=== PATIENT | female | born 1950 | race African-American/Black ===

== ENCOUNTER 2023-10-16 18:52 | Emergency (ER) | payer OTHER ==
[2023-10-16 20:00] LABS: Absolute Basophils 0.1 K/uL (0-0.5); Absolute Eosinophils 0.1 K/uL (0-0.5); Absolute Lymphocytes (CBC) 2.4 K/uL (0.7-4.9); Absolute Monocytes 0.5 K/uL (0.1-1.3); Absolute Neutrophil 6.8 K/uL (1.8-8.0); Basophils % 1.4 % (0-1.3); Eosinophils % 0.9 % (0-4.4); Hematocrit 40.3 % (36.0-45.0); Hemoglobin 13.5 g/dL (12.0-15.0); Lymphocytes % 23.9 % (15.3-44.8); MCH 28.7 pg (27.0-35.0); MCHC 33.5 g/dL (32.0-36.0); MCV 85.9 fL (80-100); MPV 8.5 fL (7.6-11.3); Monocytes % 5.1 % (3.3-12.3); Neutrophils % 68.7 % (41.7-73.7); Nucleated Red Blood Cells % 0.3 % (0-0); Platelets 360 thou/uL (152-406); Red Cell Distribution Width 14.9 % (12.1-15.2)
[2023-10-16 20:15] LABS: PT Prothrombin Time 11.6 SECONDS (9.4-12.5); PTT, Activated Partial Thromb 42.4 SECONDS (24.3-36.9); Protime INR 1.04
[2023-10-16 20:20] LABS: Anion Gap 7.8 mEq/L (5.0-15.0); BUN Blood Urea Nitrogen 17 mg/dL (7-18); Bicarbonate 30 mEq/L (21-32); Glomerular Filtration Rate 55 ml/min (=/>90); Glucose Level 154 mg/dL (74-106); Potassium 2.8 mEq/L (3.5-5.1); Sodium Level 139 mEq/L (136-145)
[2023-10-16 20:22] LABS: Troponin High Sensitivity 401.7 pg/mL (<58.9)
--- NOTE | 2023-10-16 21:03 | RAD REPORT ---
EXAM DESCRIPTION: CT - Head Brain Wo Cont - 10/16/2023 8:54 pm CLINICAL HISTORY: APHASIA Headache, drowsiness COMPARISON: Head angio dated 10/16/2023 TECHNIQUE: All CT scans are performed using dose optimization technique as appropriate and may inclu de automated exposure control or mA/KV adjustment according to patient size. FINDINGS: No intracranial hemorrhage, hydrocephalus or extra-axial fluid collection.There are severa l low-density areas in the periventricular white matter particularly on the left, anteriorly measurin g 20 mm and slightly posteriorly measuring 12 mm. These may be subacute infarcts.Mild generalized bra in atrophy. No midline shift. The paranasal sinuses and mastoids are clear. The calvarium is intact. IMPRESSION: Low-density oblong lesions in the left periventricular white matter as detailed likely s ubacute CVA. MRI followup would be suggested. No hemorrhage or midline shift.
--- NOTE | 2023-10-16 21:09 | RAD REPORT ---
EXAM DESCRIPTION: CT - Head angio - 10/16/2023 8:54 pm CLINICAL HISTORY: APHASIA COMPARISON: No comparisons TECHNIQUE: CT angiography of the head was performed with MIPs. All CT scans are performed using dose optimization technique as appropriate and may include automated exposure control or mA/KV adjustment according to patient size. FINDINGS: No evidence of large vessel occlusion. No evidence of aneurysm is detected. Chronic occlus ion of the left intracranial ICA noted. Reconstitution of flow is seen via intact inupiat of Taylor. Significant irregular and reduced flow is seen in the left vertebral artery. The left vertebral arter y is near occlusion. Poor flow seen in the right vertebral artery with focal stenosis noted of the ri ght vertebral artery enters the foramen magnum. The basilar artery is diminutive but demonstrates for clarke flow. The visualized dural venous sinuses are patent. IMPRESSION: Occlusion left intracranial ICA, age indeterminate. 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 No evidence of large vessel occlusion seen elsewhere.
--- NOTE | 2023-10-16 21:14 | RAD REPORT ---
EXAM DESCRIPTION: CT - Neck Angio - 10/16/2023 8:54 pm CLINICAL HISTORY: aphasia COMPARISON: No comparisons TECHNIQUE: CT angiography of the neck vessels was performed with MIPs. All CT scans are performed using dose optimization technique as appropriate and may include automated exposure control or mA/KV adjustment according to patient size. FINDINGS: A left aortic arch is identified with normal three vessel configuration of the great vesse ls. Mild narrowing of the right common carotid artery mid aspect likely due to tortuous vessel. No signif icant left common carotid artery abnormality. Moderate mixed plaque is present involving the right carotid bulb. This results in stenosis of 50% ba sed on NASCET criteria. Right Complete occlusion is noted of the left intracranial carotid artery. The left vertebral artery is quite diminutive in size with multiple foci of significant stenosis. Com plete occlusion is not seen however near occlusion is suspected in the intracranial segment. IMPRESSION: Complete occlusion of the left intracranial artery, indeterminate age. 50% stenosis of the right carotid bulb based on NASCET criteria. Diminutive left vertebral artery of multiple foci of stenosis. Intracranial left vertebral artery is near occlusion. NASCET criteria used. Mild 0-49% stenosis Moderate 50-69% stenosis Severe 70-99% stenosis
--- NOTE | 2023-10-16 22:06 | EDPHYS ---
Physician Documentation [facility] Name: Mary Alice Laird Age: 73 yrs Sex: Female : 1950 Arrival Date: 10/16/2023 Time: 18:52 Bed 15 Private MD: ED Physician Zen Delgadillo HPI: 10/15 19:09 This 73 yrs old Black Female presents to ER via Ambulatory with complaints of S/S of rn Possible Stroke. 19:09 The patient's problem is reported as dysphasia. Onset: The symptoms/episode rn began/occurred 3 day(s) ago. The symptoms are alleviated by nothing. The symptoms are aggravated by nothing. Associated signs and symptoms: Pertinent negatives: abdominal pain, ataxia, blurred vision, chest pain, confusion, dizziness, headache, seizure, shortness of breath. Severity of symptoms: At their worst the symptoms were moderate in the emergency department the symptoms are unchanged. The patient has not experienced similar symptoms in the past. Patient reports 3 days ago started with difficulty with speech, knows what she wants to say but has trouble getting it out. Friend noticed her on the phone and told her to come in for evaluation today. No previous stroke. Has hypertension. Does not take any blood thinners. Patient is sure started 3 days ago and not improving. Denies focal weakness or numbness. No vision changes. No chest pain. No head injury or syncope.. Historical: - Allergies: 19:08 "cant remember name"; ll1 - PMHx: 19:08 Hypertensive disorder; Hypercholesterolemia; ll1 - PSHx: 19:08 R leg vein surgery; ll1 - Immunization history:: Adult Immunizations up to date. - Infectious Disease History:: Denies. - Social history:: Smoking status: Patient reports the use of cigarette tobacco products, smokes one-half pack cigarettes per day. - Family history:: not pertinent. - Hospitalizations: : No recent hospitalization is reported. ROS: 19:09 Constitutional: Negative for fever, chills, and weight loss, Neck: Negative for injury, rn pain, and swelling, Cardiovascular: Negative for chest pain, palpitations, and edema, Respiratory: Negative for shortness of breath, cough, wheezing, and pleuritic chest pain, Abdomen/GI: Negative for abdominal pain, nausea, vomiting, diarrhea, and constipation, Back: Negative for injury and pain, MS/Extremity: Negative for injury and deformity, Skin: Negative for injury, rash, and discoloration, Neuro: Positive for difficulty with speech Exam: 19:09 Constitutional: This is a well developed, well nourished patient who is awake, alert, rn and in no acute distress. Head/Face: Normocephalic, atraumatic. Eyes: Pupils equal round and reactive to light, extra-ocular motions intact. Cardiovascular: Regular rate and rhythm. No pulse deficits. Respiratory: No increased work of breathing, no retractions or nasal flaring. Abdomen/GI: Soft, non-tender MS/ Extremity: Pulses equal, no cyanosis. Neuro: Awake and alert, GCS 15, oriented to person, place, time, and situation. Cranial nerves II-XII grossly intact. Motor strength 5/5 in all extremities. Sensory grossly intact. Slurred speech but normal naming of objects. 22:15 Radiologist reports: see report [facility] 22:17 ECG was reviewed by the Attending Physician. [facility] Vital Signs: 19:01 BP 223 / 210; Pulse 74; Resp 19; Temp 98; Pulse Ox 100% on R/A; Pain 0/10; rg5 19:02 BP 183 / 68; Pulse 81; Resp 16; Temp 98.1; Pulse Ox 100% on R/A; Weight 68.04 kg; ll1 Height 5 ft. 3 in. ; Pain 0/10; 20:00 BP 183 / 78; Pulse 70; Resp 18; Pulse Ox 100% ; Pain 0/10; rg5 21:00 BP 234 / 108; Pulse 71; Resp 18; Pulse Ox 100% on R/A; rg5 23:00 BP 244 / 79; Pulse 65; Resp 18; Pulse Ox 100% on R/A; rg5 10/16 00:00 BP 241 / 64; Pulse 67; Resp 18; Pulse Ox 100% on R/A; rg5 01:00 BP 227 / 79; Pulse 65; Resp 18; Pulse Ox 100% on R/A; rg5 02:28 BP 174 / 95; Pulse 60; Resp 18; Temp 98(O); Pulse Ox 100% on R/A; Pain 0/10; rg5 03:51 BP 221 / 73; Pulse 60; Resp 18; Pulse Ox 100% ; Pain 0/10; rg5 10/15 19:02 Body Mass Index 26.57 (68.04 kg, 160.02 cm) ll1 10/15 19:01 Pain Scale: Adult rg5 19:02 Pain Scale: Adult ll1 20:00 Pain Scale: Adult rg5 02:28 Pain Scale: Adult rg5 03:51 Pain Scale: Adult rg5 NIH Stroke Scale Scores: 10/15 19:01 NIHSS Score: 2 rg5 19:09 NIHSS Score: 2 rn Johnny Coma Score: 19:01 Eye Response: spontaneous(4). Motor Response: obeys commands(6). Verbal Response: rg5 oriented(5). Total: 15. MDM: 19:01 Patient medically screened. rn 19:09 ED course: NIH 2, onset at least 3 days ago, no indication for emergent TNK rn administration.. 22:15 Differential diagnosis: CVA, TIA, Dementia, Parkinson disease, metabolic disorder, drug ainsley effects. TNKase (Tenecteplase) Screening: Not Applicable. Data reviewed: vital signs, nurses notes, lab test result(s), EKG, radiologic studies. Consideration of Admission/Observation Escalation of care including admission/observation considered. I considered the following discharge prescriptions or medication management in the emergency department Medications were administered in the Emergency Department. See MAR. Independent interpretation of the following test(s) in the Emergency Department EKG: See my EKG interpretation above. Test considered but Not performed: MRI: no mri brain. Historians other than the Patient: Family Member: daughters well informed. Care significantly affected by the following chronic conditions: Hypertension, high cholesterol. Counseling: I had a detailed discussion with the patient and/or guardian regarding the historical points, exam findings, and any diagnostic results supporting the discharge/admit diagnosis, the presence of at least one elevated blood pressure reading (>120/80) during this emergency department visit, lab results, radiology results, the need to transfer to another facility, for higher level of care, [facility] does not immediately have the required specialist. 10/15 19:06 Order name: Basic Metabolic Panel rn 10/15 19:06 Order name: CBC with Diff; Complete Time: 20:18 rn 10/15 19:06 Order name: High Sensitivity Troponin rn 10/15 19:06 Order name: Protime (+inr); Complete Time: 20:18 rn 10/15 19:06 Order name: Ptt, Activated; Complete Time: 20:18 rn 10/15 20:06 Order name: Glucose, Ancillary Testing; Complete Time: 20:18 EDMA 10/15 22:36 Order name: Liver (Hepatic) Function [facility] 10/15 22:36 Order name: NT PRO-BNP [facility] 10/15 22:36 Order name: Magnesium [facility] 10/15 19:06 Order name: CT Neck Angio 10/15 19:06 Order name: CT Head Brain wo Cont 10/15 19:11 Order name: Head angio [facility] 10/15 21:57 Order name: XRAY Chest (1 view) [facility] 10/15 19:06 Order name: Accucheck; Complete Time: 19:55 rn 10/15 19:06 Order name: Cardiac monitoring; Complete Time: 19:52 rn 10/15 19:06 Order name: EKG - Nurse/Tech; Complete Time: 20:19 rn 10/15 19:06 Order name: IV Saline Lock; Complete Time: 19:46 rn 10/15 19:06 Order name: Labs collected and sent; Complete Time: 19:52 rn 10/15 19:06 Order name: NPO; Complete Time: 19:52 rn 10/15 19:06 Order name: O2 Per Protocol; Complete Time: 19:52 10/15 19:06 Order name: O2 Sat Monitoring; Complete Time: 19:52 10/15 19:06 Order name: Stroke Swallow Screen; Complete Time: 20:36 rn EC:17 Rate is 71 beats/min. Rhythm is regular. QRS Moville is Normal. SD interval is normal. QRS ainsley interval is normal. QT interval is normal. No Q waves. T waves are Normal. No ST changes noted. Clinical impression: NSR w/ Non-specific ST/T Changes and No evidence of ischemia. Interpreted by me. Reviewed by me. Administered Medications: 22:15 Drug: NS 0.9% IV 1000 ml IV at 1 bolus Per protocol; 1000 mL bolus Route: IV; Rate: 1 rg5 bolus; Site: right antecubital; 10/16 00:27 Follow up: Response: No adverse reaction; IV Status: Completed infusion; IV Intake: rg5 1000ml 10/15 22:30 Drug: Aspirin PO Chewable Tablet 324 mg PO once; 81 mg tablets x 4 Route: PO; rg5 10/16 00:29 Follow up: Response: No adverse reaction [facility] 10/15 22:30 Drug: Clopidogrel PO 75 mg PO once Route: PO; rg10/16 00:29 Follow up: Response: No adverse reaction [facility] 10/15 22:30 Drug: Famotidine IVP 20 mg IVP once; dilute with 10 mL 0.9% NaCl; give over 2 minutes rg5 Route: IVP; Site: right antecubital; 10/16 00:28 Follow up: Response: No adverse reaction 5 10/15 22:30 Drug: foLIC Acid IVPB 1 mg IVPB once Route: IVPB; Site: right antecubital; rg5 23:00 Drug: NS 0.9% with KCl IV 20 mEq/L 1000 ml IV at 125 ml/hr continuous Route: IV; Rate: rg5 125 ml/hr; Site: right antecubital; 23:00 Drug: Potassium PO Effervescent Tablet 25 mEq PO once; dissolve in 4 ounces of water or rg5 juice Route: PO; 10/16 00:29 Follow up: Response: No adverse reaction 10/15 23:00 Drug: Atorvastatin PO 20 mg PO once Route: PO; rg5 10/16 00:29 Follow up: Response: No adverse reaction rg5 Point of Care Testing: Blood Glucose: 10/15 19:10 Blood Glucose: 151 mg/dL; rg5 Ranges: Critical Glucose Levels:Adult <50 mg/dl or >400 mg/dl <40 mg/dl or >180 mg/dl Disposition Summary: 10/16/23 22:05 Transfer Ordered Notes: Transfer Location: [facility] ainsley Reason: Higher level of care ainsley Condition: Stable ainsley Problem: new ainsley Symptoms: have improved ainsley Accepting Physician: to evy(10/17/23 03:59) rg5 Diagnosis - Cerebral infarction, unspecified - subacute left cva ainsley - Cerebral infarction due to unspecified occlusion or stenosis of other cerebral ainsley artery - Cerebral infarction due to unspecified occlusion or stenosis of left vertebral ainsley artery - Hypokalemia ainsley - Abnormal levels of other serum enzymes - elevated troponin ainsley Forms: - Medication Reconciliation Form ainsley - SBAR form ainsley NIH Stroke Scale - NIH Stroke Score Date: 10/16/2023 Time: 19:01 Total Score = 2 10. Dysarthria (speech clarity - read or repeat words) - 1(Mild to Moderate) 11. Extinction and Inattention (visual/tactile/auditory/spatial/personal) - 0(No abnormality) 1a. Level of Consciousness (LOC) - 0(Alert) 1b. Level of Consciousness (LOC) (Month \\T\\ Age) - 0(Both) 1c. LOC Commands (Open \\T\\ Closes Eyes/Casing In Line Feeder) 2. Best Gaze (Lateral Gaze Paresis) - 0(Normal) 3. Visual Field Loss 4. Facial Palsy - 1(Minor Paralysis) 5a. Left Arm: Motor (10-second hold) - 0(No drift) 5b. Right Arm: Motor (10-second hold) - 0(No drift) 6a. Left Leg: Motor (5-second hold - always test supine) - 0(No drift) 6b. Right Leg: Motor (5-second hold - always test supine) - 0(No drift) 7. Limb Ataxia (finger/nose \\T\\ heel/patel - test with eyes open) - 0(Absent) 8. Sensory Loss (pinprick arms/legs/face) - 0(Normal) 9. Best Language: Aphasia (description/naming/reading) - 0(No aphasia) Initials: rg5 NIH Stroke Scale - NIH Stroke Score Date: 10/16/2023 Time: 19:09 Total Score = 2 10. Dysarthria (speech clarity - read or repeat words) - 1(Mild to Moderate) 11. Extinction and Inattention (visual/tactile/auditory/spatial/personal) - 0(No abnormality) 1a. Level of Consciousness (LOC) - 0(Alert) 1b. Level of Consciousness (LOC) (Month \\T\\ Age) - 0(Both) 1c. LOC Commands (Open \\T\\ Closes Eyes/Casing In Line Feeder) - 0(Both) 2. Best Gaze (Lateral Gaze Paresis) - 0(Normal) 3. Visual Field Loss - 0(No visual loss) 4. Facial Palsy - 1(Minor Paralysis) 5a. Left Arm: Motor (10-second hold) - 0(No drift) 5b. Right Arm: Motor (10-second hold) - 0(No drift) 6a. Left Leg: Motor (5-second hold - always test supine) - 0(No drift) 6b. Right Leg: Motor (5-second hold - always test supine) - 0(No drift) 7. Limb Ataxia (finger/nose \\T\\ heel/patel - test with eyes open) - 0(Absent) 8. Sensory Loss (pinprick arms/legs/face) - 0(Normal) 9. Best Language: Aphasia (description/naming/reading) - 0(No aphasia) Initials: rn Signatures: Dispatcher [employer] EDMS Zen Delgadillo MD MD cha Nieto, Roman, MD MD rn Lewis, Lynsay, RN RN ll1 Patricio Austin RN RN rg5 Corrections: (The following items were deleted from the chart) 19: 19:07 BASIC METABOLIC PANEL+C.LAB.BRZ ordered. EDMS EDMS 19:07 19:07 CBC+H.LAB.BRZ ordered. EDMS EDMS 19: 19:07 Troponin High Sensitivity+C.LAB.BRZ ordered. EDMS EDMS 19:07 19:07 PROTIME (+INR)+COAG.LAB.BRZ ordered. EDMS EDMS 19:07 19:07 PTT, ACTIVATED+COAG.LAB.BRZ ordered. EDMS EDMS 19:07 19:07 Neck Angio+CT.RAD.BRZ ordered. EDMS EDMS 19:07 19:07 Head Brain Wo Cont+CT.RAD.BRZ ordered. EDMS EDMS 19:10 19:08 Allergies: R leg SX; ll1 ll1 21:57 21:57 Chest Single View+RAD.RAD.BRZ ordered. EDMS EDMS 22:00 22:00 Urinalysis+U.LAB.BRZ ordered. EDMS EDMS 22:18 22:[address] [facility] 22:35 21:57 HEPATIC FUNCTION+C.LAB.BRZ ordered. EDMS EDMS 22:35 21:57 MAGNESIUM+C.LAB.BRZ ordered. EDMS EDMS 22:35 21:57 PROBNP+C.LAB.BRZ ordered. EDMS EDMS 10/16 03:59 10/15 22:18 to [facility]
--- NOTE | 2023-10-16 22:06 | ER ---
Nurse's Notes [facility] Name: Mary Alice Laird Age: 73 yrs Sex: Female : 1950 Arrival Date: 10/16/2023 Time: 18:52 Bed 15 Private MD: Diagnosis: Cerebral infarction, unspecified-subacute left cva;Cerebral infarction due to unspecified occlusion or stenosis of other cerebral artery;Cerebral infarction due to unspecified occlusion or stenosis of left vertebral artery;Hypokalemia;Abnormal levels of other serum enzymes-elevated troponin Presentation: 10/15 19:01 Pre-hospital glucose is not applicable to this patient. rg5 19:02 Chief complaint: Patient states: difficulty speaking, slurred speech X 4days, right iw sided facial droop. Coronavirus screen: At this time, the client does not indicate any symptoms associated with coronavirus-19. Ebola Screen: No symptoms or risks identified at this time. Initial Sepsis Screen: Does the patient meet any 2 criteria? No. Patient's initial sepsis screen is negative. Does the patient have a suspected source of infection? No. Patient's initial sepsis screen is negative. Risk Assessment: Do you want to hurt yourself or someone else? Patient reports no desire to harm self or others. Onset of symptoms was October 12, 2023. 19:02 Method Of Arrival: Ambulatory iw 19:02 Acuity: MAYDA 3 iw 19:02 An acute neurological deficit is present. ll1 Triage Assessment: 19:10 The onset of the patients symptoms was more than six hours ago. General: Appears ll1 uncomfortable, Behavior is calm, cooperative, appropriate for age. Pain: Denies pain. Neuro: Reports trouble speaking . 10/16 03:57 The onset of the patients symptoms was October 14, 2023 at 19:00. rg5 Stroke Activation: Symptom onset > 6 hours Physician: ED Attending; Name: ; Notified At: ; Arrived At: Physician: Mid-Level Provider; Name: ; Notified At: ; Arrived At: Physician: [not used]; Name: ; Notified At: ; Arrived At: Physician: [not used]; Name: ; Notified At: ; Arrived At: Physician: [not used]; Name: ; Notified At: ; Arrived At: Historical: - Allergies: 10/15 19:08 "cant remember name"; ll1 - PMHx: 19:08 Hypertensive disorder; Hypercholesterolemia; ll1 - PSHx: 19:08 R leg vein surgery; ll1 - Immunization history:: Adult Immunizations up to date. - Infectious Disease History:: Denies. - Social history:: Smoking status: Patient reports the use of cigarette tobacco products, smokes one-half pack cigarettes per day. - Family history:: not pertinent. - Hospitalizations: : No recent hospitalization is reported. Screenin:01 [facility] ED Fall Risk Assessment (Adult) History of falling in the last 3 months, rg5 including since admission No falls in past 3 months (0 pts) Confusion or Disorientation No (0 pts) Intoxicated or Sedated No (0 pts) Impaired Gait No (0 pts) Mobility Assist Device Used No (0 pt) Altered Elimination No (0 pt) Score/Fall Risk Level 3 or more points = High Risk Oriented to surroundings, Maintained a safe environment, Educated pt \\T\\ family on fall prevention, incl call for assistance when getting out of bed, Hourly rounding (assess needs \\T\\ fall precautionary measures) done. Abuse screen: Denies threats or abuse. Nutritional screening: No deficits noted. Tuberculosis screening: No symptoms or risk factors identified. Assessment: 19:01 VAN Scoring: Arm Drift: Patients demonstrates NO arm weakness. Patient is VAN Negative. rg5 Visual Disturbance: No visual disturbance noted. Aphasia: No aphasia noted. Neglect: No neglect noted. [facility] Swallow Protocol Brief Cognitive Screen What is your name? Normal, Where are you right now? Normal, What year is it? Normal. Oral Mechanism Examination Facial Symmetry: Normal, Motion: Normal, Lip Closure: Normal, Oral Mechanism Result: Normal. 3 oz Water Swallow Challenge: Pt able to drink all water without stopping, coughing, choking or throat clearing: Result: PASS MD Notified: Zen Delgadillo MD. General: Appears comfortable, Behavior is calm, cooperative, appropriate for age. Pain: Denies pain. Neuro: Level of Consciousness is awake, alert, obeys commands, Oriented to person, place, time, situation, Supervisor Fur Floor Worker are equal bilaterally Moves all extremities. Gait is steady, Speech is slurred, Facial droop on right, Pupils are PERRLA, Intact. Cardiovascular: Heart tones S1 S2 Capillary refill < 3 seconds Patient's skin is warm and dry. Rhythm is sinus rhythm. Respiratory: Airway is patent Trachea midline Respiratory effort is even, Respiratory pattern is regular, symmetrical. GI: Abdomen is round non-distended, Abd is soft and non tender. : No signs and/or symptoms were reported regarding the genitourinary system. EENT: No deficits noted. Derm: Skin is intact, Skin is dry, Skin is normal, Skin temperature is warm. Musculoskeletal: Range of motion: intact in all extremities. 19:01 [place] Swallow Protocol Exclusion Criteria: Exclusion Criteria Result: Proceed. rg5 19:01 TNKase (Tenecteplase) Screening: Not Applicable. rg5 20:30 Reassessment: Patient and/or family updated on plan of care and expected duration. Pain rg5 level reassessed. Patient is alert, oriented x 3, equal unlabored respirations, skin warm/dry/pink. 21:35 Reassessment: Patient and/or family updated on plan of care and expected duration. Pain rg5 level reassessed. Patient is alert, oriented x 3, equal unlabored respirations, skin warm/dry/pink. 22:31 Reassessment: No changes from previously documented assessment. Patient and/or family rg5 updated on plan of care and expected duration. Pain level reassessed. Patient is alert, oriented x 3, equal unlabored respirations, skin warm/dry/pink. 23:00 Reassessment: No changes from previously documented assessment. Patient and/or family rg5 updated on plan of care and expected duration. Pain level reassessed. Patient is alert, oriented x 3, equal unlabored respirations, skin warm/dry/pink. 10/16 00:00 Reassessment: No changes from previously documented assessment. Patient and/or family rg5 updated on plan of care and expected duration. Pain level reassessed. Patient is alert, oriented x 3, equal unlabored respirations, skin warm/dry/pink. 01:00 Reassessment: No changes from previously documented assessment. Patient and/or family rg5 updated on plan of care and expected duration. Pain level reassessed. Patient is alert, oriented x 3, equal unlabored respirations, skin warm/dry/pink. 02:33 Reassessment: No changes from previously documented assessment. Patient and/or family rg5 updated on plan of care and expected duration. Pain level reassessed. Patient is alert, oriented x 3, equal unlabored respirations, skin warm/dry/pink. 03:52 Reassessment: No changes from previously documented assessment. Patient and/or family rg5 updated on plan of care and expected duration. Pain level reassessed. Patient is alert, oriented x 3, equal unlabored respirations, skin warm/dry/pink. Vital Signs: 10/15 19:01 BP 223 / 210; Pulse 74; Resp 19; Temp 98; Pulse Ox 100% on R/A; Pain 0/10; [facility] 19:02 BP 183 / 68; Pulse 81; Resp 16; Temp 98.1; Pulse Ox 100% on R/A; Weight 68.04 kg; ll1 Height 5 ft. 3 in. ; Pain 0/10; 20:00 BP 183 / 78; Pulse 70; Resp 18; Pulse Ox 100% ; Pain 0/10; 5 21:00 BP 234 / 108; Pulse 71; Resp 18; Pulse Ox 100% on R/A; [facility] 23:00 BP 244 / 79; Pulse 65; Resp 18; Pulse Ox 100% on R/A; [facility] 10/16 00:00 BP 241 / 64; Pulse 67; Resp 18; Pulse Ox 100% on R/A; [facility] 01:00 BP 227 / 79; Pulse 65; Resp 18; Pulse Ox 100% on R/A; [facility] 02:28 BP 174 / 95; Pulse 60; Resp 18; Temp 98(O); Pulse Ox 100% on R/A; Pain 0/10; [facility] 03:51 BP 221 / 73; Pulse 60; Resp 18; Pulse Ox 100% ; Pain 0/10; [facility] 10/15 19:02 Body Mass Index 26.57 (68.04 kg, 160.02 cm) ll1 10/15 19:01 Pain Scale: Adult 5 19:02 Pain Scale: Adult 1 20:00 Pain Scale: Adult 5 02:28 Pain Scale: Adult 5 03:51 Pain Scale: Adult 5 Vitals: 10/15 19:01 Cardiac Rhythm Assessment Regular Sinus rhythm. [facility] Johnny Coma Score: 19:01 Eye Response: spontaneous(4). Motor Response: obeys commands(6). Verbal Response: [facility] oriented(5). Total: 15. NIH Stroke Scale Scores: 19:01 NIHSS Score: 2 5 19:09 NIHSS Score: 2 tavern operator Course: 18:53 Patient arrived in ED. mr 19:01 Vishal Casillas MD is Attending Physician. rn 19:01 Patient has correct armband on for positive identification. Call light in reach. Side rg5 rails up X 1. Adult w/ patient. 19:01 No provider procedures requiring assistance completed. Inserted saline lock: 20 gauge rg5 in right antecubital area, using aseptic technique. Blood collected. Flushed with 10 mL NS. 19:04 Triage completed. iw 19:04 Arm band placed on. iw 19:36 Patricio Austin, PATRIZIA is Primary Nurse. rg5 20:07 EKG done, by ED staff, reviewed by Vishal Casillas MD. oe 20:33 Attending Physician role handed off by Vishal Casillas MD ainsley 20:33 Zen Delgadillo MD is Attending Physician. ainsley 20:55 CT Neck Angio In Process Unspecified. EDMS 20:55 CT Head Brain wo Cont In Process Unspecified. EDMS 20:56 Head angio In Process Unspecified. EDMS 22:26 XRAY Chest (1 view) In Process Unspecified. EDMS 23:00 initiated transfer spoke with wallace Han/ patient was accepted to [facility] RM [address] lee, m \\T\\ 2331 / initiated transport spoke with ellis from [facility] accepted ETA 1.5 hours \\T\\ 0001. 10/16 03:58 Provided Education on: needs for transfer. rg5 03:59 Patient transferred, IV remains in place. intact, No redness/swelling at site. rg5 Administered Medications: 10/15 22:15 Drug: NS 0.9% IV 1000 ml IV at 1 bolus Per protocol; 1000 mL bolus Route: IV; Rate: 1 rg5 bolus; Site: right antecubital; 10/16 00:27 Follow up: Response: No adverse reaction; IV Status: Completed infusion; IV Intake: rg5 1000ml 10/15 22:30 Drug: Aspirin PO Chewable Tablet 324 mg PO once; 81 mg tablets x 4 Route: PO; rg5 10/16 00:29 Follow up: Response: No adverse reaction rg5 10/15 22:30 Drug: Clopidogrel PO 75 mg PO once Route: PO; rg5 10/16 00:29 Follow up: Response: No adverse reaction rg5 10/15 22:30 Drug: Famotidine IVP 20 mg IVP once; dilute with 10 mL 0.9% NaCl; give over 2 minutes rg5 Route: IVP; Site: right antecubital; 10/16 00:28 Follow up: Response: No adverse reaction rg5 10/15 22:30 Drug: foLIC Acid IVPB 1 mg IVPB once Route: IVPB; Site: right antecubital; rg5 23:00 Drug: NS 0.9% with KCl IV 20 mEq/L 1000 ml IV at 125 ml/hr continuous Route: IV; Rate: rg5 125 ml/hr; Site: right antecubital; 23:00 Drug: Potassium PO Effervescent Tablet 25 mEq PO once; dissolve in 4 ounces of water or rg5 juice Route: PO; 10/16 00:29 Follow up: Response: No adverse reaction rg5 10/15 23:00 Drug: Atorvastatin PO 20 mg PO once Route: PO; rg5 10/16 00:29 Follow up: Response: No adverse reaction rg5 Medication: 10/15 19:01 VIS not applicable for this client. rg5 Point of Care Testing: Blood Glucose: 19:10 Blood Glucose: 151 mg/dL; rg5 Ranges: Intake: 10/16 00:27 IV: 1000ml; Total: 1000ml. rg5 Outcome: 10/15 22:05 ER care complete, transfer ordered by MD. schmitz 10/16 03:56 Transferred by ground EMS to [facility], [facility] Condition: stable Demonstrated understanding of instructions, 03:59 Patient left the ED. rg5 NIH Stroke Scale - NIH Stroke Score Date: 10/16/2023 Time: 19:01 Total Score = 2 10. Dysarthria (speech clarity - read or repeat words) - 1(Mild to Moderate) 11. Extinction and Inattention (visual/tactile/auditory/spatial/personal) - 0(No abnormality) 1a. Level of Consciousness (LOC) - 0(Alert) 1b. Level of Consciousness (LOC) (Month \\T\\ Age) - 0(Both) 1c. LOC Commands (Open \\T\\ Closes Eyes/Manager Women) 2. Best Gaze (Lateral Gaze Paresis) - 0(Normal) 3. Visual Field Loss 4. Facial Palsy - 1(Minor Paralysis) 5a. Left Arm: Motor (10-second hold) - 0(No drift) 5b. Right Arm: Motor (10-second hold) - 0(No drift) 6a. Left Leg: Motor (5-second hold - always test supine) - 0(No drift) 6b. Right Leg: Motor (5-second hold - always test supine) - 0(No drift) 7. Limb Ataxia (finger/nose \\T\\ heel/patel - test with eyes open) - 0(Absent) 8. Sensory Loss (pinprick arms/legs/face) - 0(Normal) 9. Best Language: Aphasia (description/naming/reading) - 0(No aphasia) Initials: rg5 NIH Stroke Scale - NIH Stroke Score Date: 10/16/2023 Time: 19:09 Total Score = 2 10. Dysarthria (speech clarity - read or repeat words) - 1(Mild to Moderate) 11. Extinction and Inattention (visual/tactile/auditory/spatial/personal) - 0(No abnormality) 1a. Level of Consciousness (LOC) - 0(Alert) 1b. Level of Consciousness (LOC) (Month \\T\\ Age) - 0(Both) 1c. LOC Commands (Open \\T\\ Closes Eyes/Manager Women) - 0(Both) 2. Best Gaze (Lateral Gaze Paresis) - 0(Normal) 3. Visual Field Loss - 0(No visual loss) 4. Facial Palsy - 1(Minor Paralysis) 5a. Left Arm: Motor (10-second hold) - 0(No drift) 5b. Right Arm: Motor (10-second hold) - 0(No drift) 6a. Left Leg: Motor (5-second hold - always test supine) - 0(No drift) 6b. Right Leg: Motor (5-second hold - always test supine) - 0(No drift) 7. Limb Ataxia (finger/nose \\T\\ heel/patel - test with eyes open) - 0(Absent) 8. Sensory Loss (pinprick arms/legs/face) - 0(Normal) 9. Best Language: Aphasia (description/naming/reading) - 0(No aphasia) Initials: rn Signatures: Dispatcher [employer] EDZen Ma MD MD cha Rivera, Zohra, Reg Reg mr Niru Recinos RN RN iw Nieto, Roman, MD MD rn Espinosa, Orlando oe Lewis, Lynsay, RN RN ll1 Akua Taylor Rommel, RN RN rg5 Corrections: (The following items were deleted from the chart) 10/15 19:08 19:02 Pulse 81bpm; Resp 16bpm; Pulse Ox 100% RA; Temp 98.1F; iw ll1 19:10 19:08 Allergies: R leg SX; ll1 ll1
--- NOTE | 2023-10-16 22:32 | RAD REPORT ---
EXAM DESCRIPTION: RAD - Chest Single View - 10/16/2023 10:24 pm CLINICAL HISTORY: COUGH Chest pain. COMPARISON: No comparisons FINDINGS: Portable technique limits examination quality. Nodular opacity is present in the right upper lobe which may represent pulmonary nodule or end of the right second rib. The lungs are grossly clear of acute infiltrate. The heart is normal in size. No d isplaced fractures.Consider CT chest followup for further evaluation.
[2023-10-16] MEDS ORDERED: CLOPIDOGREL 75 MG TABLET ONE (22:33)
[2023-10-16] MEDS ORDERED: ASPIRIN 81 MG CHEWABLE TABLET ONE (22:34)
[2023-10-16] MEDS ORDERED: POTASSIUM 25 MEQ EFFERV TAB ONE (22:34)
[2023-10-16] MEDS ORDERED: FAMOTIDINE 20 MG/2 ML VIAL IV ONE (22:34)
[2023-10-16] MEDS ORDERED: NS KCL 20MEQ 1,000 ML IV ONE (22:35)
[2023-10-16] MEDS ORDERED: FOLIC ACID 5 MG/ML VIAL ONE (22:35)
[2023-10-16] MEDS ORDERED: NA CHLORIDE 0.9% 1,000 ML ONE (22:36)
[2023-10-16 22:52] LABS: ALT/SGPT 16 U/L (13-56); Albumin 3.2 g/dL (3.4-5.0); Albumin/Globulin Ratio 0.7 (1.1-1.8); Alkaline Phosphatase 103 U/L (45-117); Bilirubin Direct 0.2 mg/dL (0-0.2); Bilirubin Indirect, Calculated 0.3 mg/dL (0.2-0.8); Bilirubin Total 0.5 mg/dL (0.2-1.0); Globulin 4.6 g/dL (2.3-3.5); Magnesium 1.9 mg/dL (1.6-2.4); NT PRO-BNP 1262 pg/mL (<125); Protein, Total 7.8 g/dL (6.4-8.2)
[2023-10-16 22:53] LABS: AST/SGOT < 10 U/L (15-37)
[2023-10-17 04:10] VITALS: O2SAT 100
[2023-10-17 04:19] VITALS: TEMP 98
[2023-10-17 04:20] VITALS: BP 221/73
--- NOTE | 2023-10-18 14:44 | EKG ---
Test Date: 2023-10-16 Test Time: 20:02:50 Junior Engineer: ROSA MEASUREMENT RESULTS: Intervals: Rate: 71 HI: 162 QRSD: 96 QT: 432 QTc: 469 [place]: P: 77 HI: 162 QRS: 23 T: 51 INTERPRETIVE STATEMENTS: Normal sinus rhythm Nonspecific T wave abnormality Abnormal ECG Compared to ECG 02/26/2000 14:21:00 Possible ischemia no longer present T-wave abnormality still present Electronically Signed On 10-18-23 14:40:31 CDT by Mack Dugan
== END 2023-10-17 03:59 | disposition short-term general hospital (02) ==
LOC: ER 18:52
DX: I63.59 Cerebral infarction due to unspecified occlusion or stenosis of other cerebral artery (principal); I63.212 Cerebral infarction due to unspecified occlusion or stenosis of left vertebral artery; I63.9 Cerebral infarction, unspecified; R29.702 NIHSS score 2; I10 Essential (primary) hypertension; E87.6 Hypokalemia; R79.89 Other specified abnormal findings of blood chemistry; F17.210 Nicotine dependence, cigarettes, uncomplicated
CPT/HCPCS: 96361; 93005; 85025; 80048; 36415; 83735; 85610; 82947; 80076; 85730; 84484; 83880; 70450; 70496; 70498; 71045; 96375; 96374; 99285; Q9967; J7030; J3480

== ENCOUNTER 2024-03-16 13:17 | Inpatient (IN) | payer OTHER ==
[2024-03-16 14:13] LABS: Absolute Basophils 0.1 K/uL (0-0.5); Absolute Eosinophils 0.3 K/uL (0-0.5); Absolute Lymphocytes (CBC) 1.7 K/uL (0.7-4.9); Absolute Monocytes 0.5 K/uL (0.1-1.3); Absolute Neutrophil 6.3 K/uL (1.8-8.0); Basophils % 0.8 % (0-1.3); Eosinophils % 3.2 % (0-4.4); Hematocrit 33.2 % (36.0-45.0); Hemoglobin 11.2 g/dL (12.0-15.0); MCH 28.9 pg (27.0-35.0); MCHC 33.8 g/dL (32.0-36.0); MCV 85.7 fL (80-100); MPV 8.5 fL (7.6-11.3); Monocytes % 5.7 % (3.3-12.3); Neutrophils % 71.3 % (41.7-73.7); Platelets 316 thou/uL (152-406); RBC Red Blood Cell Count 3.87 M/uL (3.86-4.86)
[2024-03-16] MEDS ORDERED: NA CHLORIDE 0.9% 500 ML ONE (14:15)
[2024-03-16 14:19] LABS: PT Prothrombin Time 11.3 SECONDS (9.4-12.5); Protime INR 1.08
[2024-03-16 14:33] LABS: ALT/SGPT 16 U/L (13-56); Albumin 3.2 g/dL (3.4-5.0); Albumin/Globulin Ratio 0.8 (1.1-1.8); Alkaline Phosphatase 90 U/L (45-117); BUN Blood Urea Nitrogen 13 mg/dL (7-18); Bicarbonate 28 mEq/L (21-32); Bilirubin Total 0.3 mg/dL (0.2-1.0); Globulin 4.2 g/dL (2.3-3.5); Glomerular Filtration Rate 59 ml/min (=/>90); Glucose Level 87 mg/dL (74-106); Lipase 24 U/L (13-75); NT PRO-BNP 941 pg/mL (<125); Protein, Total 7.4 g/dL (6.4-8.2); Sodium Level 141 mEq/L (136-145)
[2024-03-16 14:35] LABS: AST/SGOT < 10 U/L (15-37); Bilirubin Direct < 0.2 mg/dL (0-0.2); Bilirubin Indirect, Calculated 0.1 mg/dL (0.2-0.8)
[2024-03-16 14:36] LABS: Troponin High Sensitivity 113.8 pg/mL (<58.9)
--- NOTE | 2024-03-16 15:03 | ER ---
Nurse's Notes [facility] Name: Mary Alice Laird Age: 73 yrs Sex: Female : 1950 Arrival Date: 03/16/2024 Time: 13:17 Bed 25 Private MD: Diagnosis: Essential (primary) hypertension;Non ST elevation LA;Edema, unspecified;Dementia in other diseases classified elsewhere without behavioral disturbance Presentation: 03/16 13:22 Chief complaint: EMS states: Family called home health for concern of HTN. Coronavirus ss screen: Client denies travel out of the [place] in the last 14 days. Ebola Screen: Patient denies exposure to infectious person. Patient denies travel to an Ebola-affected area in the 21 days before illness onset. Initial Sepsis Screen: Does the patient meet any 2 criteria? No. Patient's initial sepsis screen is negative. Does the patient have a suspected source of infection? No. Patient's initial sepsis screen is negative. Risk Assessment: Do you want to hurt yourself or someone else? Patient reports no desire to harm self or others. Onset of symptoms is unknown. Care prior to arrival: IV initiated. 22 GA, in the right antecubital area, Glucose check: 132. 13:22 Method Of Arrival: EMS: [facility] 13:22 Acuity: MAYDA 2 ss Historical: - Allergies: 13:24 Aleve; ss - PMHx: 13:24 Cerebrovascular accident; Hypercholesterolemia; Hypertensive disorder; ss 13:25 Diabetes mellitus; ss - PSHx: 13:24 R leg vein surgery; ss - Immunization history:: Adult Immunizations unknown. - Infectious Disease History:: Denies. - Family history:: not pertinent. - Social history:: Smoking status: unknown. Screenin:45 [facility] ED Fall Risk Assessment (Adult) History of falling in the last 3 months, kj2 including since admission No falls in past 3 months (0 pts) Confusion or Disorientation No (0 pts) Intoxicated or Sedated No (0 pts) Impaired Gait No (0 pts) Mobility Assist Device Used No (0 pt) Altered Elimination No (0 pt) Score/Fall Risk Level 0 - 2 = Low Risk Maintained a safe environment, Hourly rounding (assess needs \T\ fall precautionary measures) done. Abuse screen: Denies threats or abuse. Denies injuries from another. Nutritional screening: No deficits noted. Tuberculosis screening: No symptoms or risk factors identified. 22:55 [facility] ED Fall Risk Assessment (Adult) History of falling in the last 3 months, ay including since admission Yes- single mechanical fall (1 pt) Confusion or Disorientation Yes (5 pts) Intoxicated or Sedated No (0 pts) Impaired Gait Yes (1 pt) Mobility Assist Device Used No (0 pt) Altered Elimination Yes (1 pt) Score/Fall Risk Level 3 or more points = High Risk Oriented to surroundings, Maintained a safe environment, Educated pt \T\ family on fall prevention, incl call for assistance when getting out of bed, Assessed \T\ reinforced patient's understanding of fall precautions, Provided non-skid footwear, Utilized family, sitter, or virtual line out worker as indicated. Assessment: 13:45 General: Appears in no apparent distress. Behavior is calm, cooperative. Pain: Denies kj2 pain. Neuro: Level of Consciousness is awake, alert, obeys commands, Oriented to person, place, time, situation. Cardiovascular: Patient's skin is warm and dry. Respiratory: Airway is patent Respiratory effort is unlabored. GI: No signs and/or symptoms were reported involving the gastrointestinal system. : No signs and/or symptoms were reported regarding the genitourinary system. 14:45 Reassessment: Patient appears in no apparent distress at this time. Patient and/or kj2 family updated on plan of care and expected duration. Pain level reassessed. Patient is alert, oriented x 3, equal unlabored respirations, skin warm/dry/pink. 16:03 Reassessment: Patient appears in no apparent distress at this time. Patient and/or kj2 family updated on plan of care and expected duration. Pain level reassessed. Patient is alert, oriented x 3, equal unlabored respirations, skin warm/dry/pink. Vital Signs: 13:48 BP 217 / 84; Pulse 76; Resp 16; Temp 98(O); Pulse Ox 100% on R/A; Weight 56.7 kg; ss Height 5 ft. 2 in. ; Pain 0/10; 15:13 BP 196 / 75; Pulse 70; Resp 20; Pulse Ox 100% ; kj2 16:04 BP 213 / 105; Resp 20; kj2 13:48 Body Mass Index 22.86 (56.70 kg, 157.48 cm) ss 13:48 Pain Scale: Adult ss ED Course: 13:20 Patient arrived in ED. bd 13:24 Triage completed. ss 13:25 Arm band placed on right wrist. ss 13:27 Zen Delgadillo MD is Attending Physician. ainsley 13:45 Patient has correct armband on for positive identification. Bed in low position. Call kj2 light in reach. Side rails up X 1. Adult w/ patient. Provided Education on: call light. 13:45 No provider procedures requiring assistance completed. Maintain EMS IV. Dressing kj2 intact. Good blood return noted. Site clean \T\ dry. Gauge \T\ site: 20 right AC. Flushed with 10 mL NS. 14:03 Katja Arriaga, PATRIZIA is Primary Nurse. kj2 14:41 XRAY Chest (1 view) In Process Unspecified. EDMS 15:01 Link Centeno is Hospitalizing Provider. ainsley 16:04 Assisted to bathroom. kj2 16:34 Urinalysis w/ reflexes Sent. kj2 Administered Medications: 14:19 Drug: NS 0.9% IV 500 ml 500 ml IV at 100 ml/hr once; to be given as a bolus over 30 kj2 minutes Volume: 500 ml; Route: IV; Rate: 100 ml/hr; Site: right antecubital; 16:03 Follow up: IV Status: Completed infusion; IV Intake: 500ml kj2 15:10 Drug: Aspirin PO Chewable Tablet 162 mg PO once Route: PO; kj2 16:02 Follow up: Response: No adverse reaction kj2 15:10 Drug: Norvasc PO 10 mg PO once Route: PO; kj2 16:02 Follow up: Response: No adverse reaction kj2 15:10 Drug: Metoprolol PO 25 mg PO once Route: PO; kj2 16:02 Follow up: Response: No adverse reaction kj2 16:01 Drug: Acetaminophen PO 650 mg PO once Route: PO; kj2 16:01 Drug: Enoxaparin Sub-Q 1 mg/kg Sub-Q once Route: Sub-Q; Site: abdomen; kj2 16:01 Drug: Famotidine IVP 20 mg IVP once; dilute with 10 mL 0.9% NaCl; give over 2 minutes kj2 Route: IVP; Site: right antecubital; 16:02 Drug: Furosemide IVP 20 mg IVP once; give over 2 minutes Route: IVP; Site: right kj2 antecubital; 16:02 Drug: Nitroglycerin Transdermal Ointment 2 % 1 inches Transdermal once Route: kj2 Transdermal; Site: anterior chest wall; Medication: 14:06 VIS not applicable for this client. kj2 Intake: 16:03 IV: 500ml; Total: 500ml. kj2 Outcome: 15:02 Decision to Hospitalize by Provider. [facility] 03/17 18:33 Patient left the ED. Signatures: Dispatcher [employer] EDMS Tasha Rodriguez Corey, MD MD cha Blanchard, Shelby, RN RN Katja Arriaga RN RN kj2 Olya Montiel RN RN ay Corrections: (The following items were deleted from the chart) 03/16 13:49 13:22 Acuity: MAYDA 3 [facility]
--- NOTE | 2024-03-16 15:03 | EDPHYS ---
Physician Documentation [facility] Name: Mary Alice Laird Age: 73 yrs Sex: Female : 1950 Arrival Date: 03/16/2024 Time: 13:17 Bed 25 Private MD: ED Physician Zen Delgadillo HPI: 03/16 14:55 This 73 yrs old Black Female presents to ER via EMS with complaints of High Blood ainsley Pressure. 14:55 The patient has elevated blood pressure and discovered this at home, with a home ainsley device. Onset: The symptoms/episode began/occurred today. Modifying factors: The symptoms are aggravated by activity, The symptoms are alleviated by remaining still. Associated signs and symptoms: Pertinent positives: dizziness. Severity of symptoms: At its worst the blood pressure was moderate, in the emergency department the blood pressure is unchanged. The patient has experienced similar episodes in the past, multiple times. Historical: - Allergies: 13:24 Aleve; ss - PMHx: 13:24 Cerebrovascular accident; Hypercholesterolemia; Hypertensive disorder; ss 13:25 Diabetes mellitus; ss - PSHx: 13:24 R leg vein surgery; ss - Immunization history:: Adult Immunizations unknown. - Infectious Disease History:: Denies. - Family history:: not pertinent. - Social history:: Smoking status: unknown. ROS: 14:56 Constitutional: Negative for fever, chills, and weight loss, Eyes: Negative for injury, ainsley pain, redness, and discharge, ENT: Negative for injury, pain, and discharge, Neck: Negative for injury, pain, and swelling, Cardiovascular: Negative for chest pain, palpitations, and edema, Respiratory: Negative for shortness of breath, cough, wheezing, and pleuritic chest pain, Abdomen/GI: Negative for abdominal pain, nausea, vomiting, diarrhea, and constipation, Back: Negative for injury and pain, : Negative for injury, bleeding, discharge, and swelling, Skin: Negative for injury, rash, and discoloration, Neuro: Negative for headache, weakness, numbness, tingling, and seizure, Psych: Negative for depression, anxiety, suicide ideation, homicidal ideation, and hallucinations, Allergy/Immunology: Negative for hives, rash, and allergies, Endocrine: Negative for neck swelling, polydipsia, polyuria, polyphagia, and marked weight changes, Hematologic/Lymphatic: Negative for swollen nodes, abnormal bleeding, and unusual bruising, 14:56 MS/extremity: Positive for pain, swelling, of the right leg and left leg, Exam: 14:56 Constitutional: This is a well developed, well nourished patient who is awake, alert, ainsley and in no acute distress. Head/Face: Normocephalic, atraumatic. Eyes: Pupils equal round and reactive to light, extra-ocular motions intact. Lids and lashes normal. Conjunctiva and sclera are non-icteric and not injected. Cornea within normal limits. Periorbital areas with no swelling, redness, or edema. ENT: Nares patent. No nasal discharge, no septal abnormalities noted. Tympanic membranes are normal and external auditory canals are clear. Oropharynx with no redness, swelling, or masses, exudates, or evidence of obstruction, uvula midline. Mucous membranes moist. Neck: Trachea midline, no thyromegaly or masses palpated, and no cervical lymphadenopathy. Supple, full range of motion without nuchal rigidity, or vertebral point tenderness. No Meningismus. Chest/axilla: Normal chest wall appearance and motion. Nontender with no deformity. No lesions are appreciated. Cardiovascular: Regular rate and rhythm with a normal S1 and S2. No gallops, murmurs, or rubs. Normal PMI, no JVD. No pulse deficits. Respiratory: Lungs have equal breath sounds bilaterally, clear to auscultation and percussion. No rales, rhonchi or wheezes noted. No increased work of breathing, no retractions or nasal flaring. Abdomen/GI: Soft, non-tender, with normal bowel sounds. No distension or tympany. No guarding or rebound. No evidence of tenderness throughout. Back: No spinal tenderness. No costovertebral tenderness. Full range of motion. Skin: Warm, dry with normal turgor. Normal color with no rashes, no lesions, and no evidence of cellulitis. Neuro: Awake and alert, GCS 15, oriented to person, place, time, and situation. Cranial nerves II-XII grossly intact. Motor strength 5/5 in all extremities. Sensory grossly intact. Cerebellar exam normal. Normal gait. Psych: Awake, alert, with orientation to person, place and time. Behavior, mood, and affect are within normal limits. 14:56 Musculoskeletal/extremity: ROM: full active range of motion, full passive range of motion, Circulation is intact in all extremities. Sensation intact. Compartment Syndrome exam of affected extremity: is normal. Weight bearing: able to fully bear weight, DVT Exam: no pain, no tenderness, negative Homans' sign noted on exam, no appreciated bluish discoloration, no erythema, no increased warmth, swelling, Vital Signs: 13:48 BP 217 / 84; Pulse 76; Resp 16; Temp 98(O); Pulse Ox 100% on R/A; Weight 56.7 kg; ss Height 5 ft. 2 in. ; Pain 0/10; 15:13 BP 196 / 75; Pulse 70; Resp 20; Pulse Ox 100% ; kj2 16:04 BP 213 / 105; Resp 20; kj2 13:48 Body Mass Index 22.86 (56.70 kg, 157.48 cm) ss 13:48 Pain Scale: Adult ss MDM: 13:27 Medical Screening Exam initiated ainsley 14:57 Differential diagnosis: hypertensive crisis, Malignant HTN. Data reviewed: vital signs, [facility] nurses notes, EMS record, lab test result(s), EKG, radiologic studies, plain films. Consideration of Admission/Observation Patient was admitted/placed on observation. Escalation of care including admission/observation considered. I considered the following discharge prescriptions or medication management in the emergency department Medications were administered in the Emergency Department. See MAR. Independent interpretation of the following test(s) in the Emergency Department EKG: See my EKG interpretation above. Test considered but Not performed: Ultrasound 2 D ECHO. Care significantly affected by the following chronic conditions: Diabetes, Hypertension, CVA, HIGH CHLESTEROL. 03/16 13:29 Order name: Basic Metabolic Panel; Complete Time: 14:52 [facility] 03/16 13:29 Order name: CBC with Diff; Complete Time: 14:52 [facility] 03/16 13:29 Order name: LFT's; Complete Time: 14:52 [facility] 03/16 13:29 Order name: Magnesium; Complete Time: 14:52 [facility] 03/16 13:29 Order name: NT PRO-BNP; Complete Time: 14:52 [facility] 03/16 13:29 Order name: PT-INR; Complete Time: 14:52 [facility] 03/16 13:29 Order name: Troponin HS; Complete Time: 14:52 [facility] 03/16 13:29 Order name: Urinalysis w/ reflexes; Complete Time: 05:39 [facility] 03/16 13:29 Order name: Lipase; Complete Time: 14:52 [facility] 03/16 16:46 Order name: Urine Culture [facility] 03/16 17:38 Order name: Troponin High Sensitivity [facility] 03/16 17:38 Order name: Troponin High Sensitivity [facility] 03/16 17:38 Order name: Troponin High Sensitivity [facility] 03/16 23:34 Order name: Glucose, Ancillary Testing; Complete Time: 05:39 [facility] 03/17 08:32 Order name: Troponin High Sensitivity [facility] 03/17 09:01 Order name: Glucose, Ancillary Testing [facility] 03/17 12:29 Order name: Glucose, Ancillary Testing [facility] 03/17 17:06 Order name: Glucose, Ancillary Testing [facility] 03/16 13:29 Order name: XRAY Chest (1 view); Complete Time: 05:39 [facility] 03/16 21:17 Order name: US; Complete Time: 05:39 [facility] 03/16 13:29 Order name: Cardiac monitoring; Complete Time: 15:01 [facility] 03/16 13:29 Order name: EKG - Nurse/Tech; Complete Time: 15:01 [facility] 03/16 13:29 Order name: IV Saline Lock; Complete Time: 15:01 [facility] 03/16 13:29 Order name: Labs collected and sent; Complete Time: 15:01 [facility] 03/16 13:29 Order name: O2 Per Protocol; Complete Time: 15:01 [facility] 03/16 13:29 Order name: O2 Sat Monitoring; Complete Time: 15:01 [facility] Administered Medications: 14:19 Drug: NS 0.9% IV 500 ml 500 ml IV at 100 ml/hr once; to be given as a bolus over 30 kj2 minutes Volume: 500 ml; Route: IV; Rate: 100 ml/hr; Site: right antecubital; 16:03 Follow up: IV Status: Completed infusion; IV Intake: 500ml kj2 15:10 Drug: Aspirin PO Chewable Tablet 162 mg PO once Route: PO; kj2 16:02 Follow up: Response: No adverse reaction kj2 15:10 Drug: Norvasc PO 10 mg PO once Route: PO; kj2 16:02 Follow up: Response: No adverse reaction kj2 15:10 Drug: Metoprolol PO 25 mg PO once Route: PO; kj2 16:02 Follow up: Response: No adverse reaction kj2 16:01 Drug: Acetaminophen PO 650 mg PO once Route: PO; kj2 16:01 Drug: Enoxaparin Sub-Q 1 mg/kg Sub-Q once Route: Sub-Q; Site: abdomen; kj2 16:01 Drug: Famotidine IVP 20 mg IVP once; dilute with 10 mL 0.9% NaCl; give over 2 minutes kj2 Route: IVP; Site: right antecubital; 16:02 Drug: Furosemide IVP 20 mg IVP once; give over 2 minutes Route: IVP; Site: right kj2 antecubital; 16:02 Drug: Nitroglycerin Transdermal Ointment 2 % 1 inches Transdermal once Route: kj2 Transdermal; Site: anterior chest wall; Disposition Summary: 03/16/24 15:02 Hospitalization Ordered Notes: Hospitalization Status: Inpatient Admission ainsley Provider: [facility] ainsley Condition: Stable ainsley Problem: new ainsley Symptoms: have improved ainsley Bed/Room Type: Standard ainsley Location: Telemetry/MedSurg (Inpatient)(03/17/24 16:42) bd Room Assignment: 209(03/17/24 16:42) bd Diagnosis - Essential (primary) hypertension ainsley - Non ST elevation NM ainsley - Edema, unspecified ainsley - Dementia in other diseases classified elsewhere without behavioral disturbance ainsley Forms: - Medication Reconciliation Form ainsley - SBAR form ainsley - Leadership Thank You Letter ainsley Signatures: Dispatcher [employer] EDMS Tasha Rodriguez Corey, MD MD cha Waters, Shelly, VAC PRESS OPERATOR-C VAC PRESS OPERATOR-Csnw Meghna Bass RN RN ss Deyanira Bueno RN RN kb3 Katja Arriaga RN RN kj2 Corrections: (The following items were deleted from the chart) 13: 13:29 BASIC METABOLIC PANEL+C.LAB.BRZ ordered. EDMS EDMS 13:29 13:29 CBC+H.LAB.BRZ ordered. EDMS EDMS 13:29 13:29 HEPATIC FUNCTION+C.LAB.BRZ ordered. EDMS EDMS 13:29 13:29 MAGNESIUM+C.LAB.BRZ ordered. EDMS EDMS 13:29 13:29 PROBNP+C.LAB.BRZ ordered. EDMS EDMS 13:29 13:29 PROTIME (+INR)+COAG.LAB.BRZ ordered. EDMS EDMS 13: 13:29 Troponin High Sensitivity+C.LAB.BRZ ordered. EDMS EDMS 13: 13:29 Urinalysis+U.LAB.BRZ ordered. EDMS EDMS 13: 13:29 LIPASE+C.LAB.BRZ ordered. EDMS EDMS 13: 13:29 Chest Single View+RAD.RAD.BRZ ordered. EDMS EDMS 19:34 15:02 Telemetry/MedSurg (Inpatient) ainsley kb3 19:34 15:02 ainsley kb3 03/17 14:55 03/16 19:[address] [facility] ER HOLD kb3 bd 03/17 14:55 03/16 19:34 ERHOLD- kb3 bd 03/17 15:39 14:55 Telemetry/MedSurg (Inpatient) bd ss 15:39 14:55 430 bd ss 16:27 15:39 ss kb3 16:42 15:[address] [facility] ER HOLD ss bd 16:42 16:27 ERHOLD- kb3 bd
[2024-03-16] MEDS ORDERED: ASPIRIN 81 MG CHEWABLE TABLET ONE (15:05)
[2024-03-16] MEDS ORDERED: METOPROLOL TAR 25 MG TAB ONE (15:05)
[2024-03-16] MEDS ORDERED: AMLODIPINE 10 MG TAB ONE (15:05)
--- NOTE | 2024-03-16 15:11 | RAD REPORT ---
EXAM: Chest Single View HISTORY: COUGH COMPARISON: None. FINDINGS: LUNGS/PLEURA: Nodule in the right suprahilar region is similar to 10/08/2023. The lungs are otherwise clear. MEDIASTINUM: The mediastinal silhouette is within normal limits. CARDIAC: Mild cardiomegaly UPPER ABDOMEN: No significant abnormality. BONES: No acute abnormality. LINES/TUBES/OTHER: N/A IMPRESSION: No evidence of acute cardiopulmonary disease. Right suprahilar nodule identified on the prior chest r adiograph is unchanged. Radiographic or CT follow-up is suggested in 6-12 months.
[2024-03-16] MEDS ORDERED: ACETAMINOPHEN 325 MG TABLET ONE (15:43)
[2024-03-16] MEDS ORDERED: NITROGLYCERIN 1 GM PKT TD ONE (15:44)
[2024-03-16] MEDS ORDERED: FUROSEMIDE 20 MG/ 2ML VIAL ONE (15:44)
[2024-03-16] MEDS ORDERED: FAMOTIDINE 20 MG/2 ML VIAL IV ONE (15:44)
[2024-03-16] MEDS ORDERED: ENOXAPARIN 60 MG/0.6 ML SQ ONE (15:45)
[2024-03-16 16:42] LABS: Specific Gravity 1.007 (1.005-1.030); Sqamous Epithelial <5 /HPF (None Seen); Urine Bacteria <20 /HPF (<20); Urine Bilirubin NEGATIVE (Negative); Urine Blood Negative (Negative); Urine Clarity Turbid (Clear); Urine Color Colorless (Yellow); Urine Crystals Unidentified Few /HPF (None Seen); Urine Culture Reflex Order REFLEXED; Urine Glucose NEGATIVE (Negative); Urine Ketones NEGATIVE (Negative); Urine Microscopic Reflex YN ORDER UMIC; Urine Mucus Slight /HPF (None Seen); Urine Nitrite NEGATIVE (Negative); Urine Protein NEGATIVE (Negative); Urine RBC <5 /HPF (None Seen); Urine Urobilinogen Normal (Normal); Urine Yeast (Budding) Trace /HPF (None Seen); Urine pH 7.5 (5.0-7.0)
[2024-03-16] MEDS ORDERED: ALBUTEROL 2.5 MG/3 ML NEB SOL NEB PRN (17:27)
[2024-03-16] MEDS ORDERED: MAGNESIUM HYDROXIDE 8% 30 ML PO PRN (17:27)
[2024-03-16] MEDS ORDERED: ONDANSETRON 4 MG/2 ML VIAL IV PRN (17:27)
--- NOTE | 2024-03-16 18:26 | P.HP ---
Certification for Inpatient Patient admitted to: Inpatient With expected LOS: >2 Midnights Patient will require the following post-hospital care: None Practitioner: I am a practitioner with admitting privileges, knowledge of patient current condition, hospital course, and medical plan of care. Services: Services provided to patient in accordance with Admission requirements found in Title 42 Section 412.3 of the Code of Federal Regulations Patient History Date of Service: 03/16/24 Reason for admission: Hypertensive urgency, elevated troponin History of Present Illness: Ms. Laird is a 73-year-old female with past medical history of hypertension, hyperlipidemia, CVA, and diabetes. Her blood pressure medicine was recently changed to increase her hydralazine from 25 mg p.o. twice daily to 50 mg p.o. twice daily in addition to her other medication. On her friend's arrival to her home today, she states Ms. Laird complained of visual changes in her left eye with some mild dizziness. She took her blood pressure and it was noted to be quite elevated and prompted her to come to the emergency department. Her initial pressure was 217/84 with a heart rate of 76. She was treated with Nitropaste, 20 mg of Lasix IV, metoprolol 25 mg p.o., Norvasc 10 mg p.o., 81 mg aspirin p.o. NS small fluid bolus of 500 mL of normal saline followed by 20 mg of Lasix IV push. Ms. Laird states her symptoms resolved and her repeat blood pressure was 196/75 with heart rate of 70. She denies chest pain, any further visual changes, or dizziness. EKG shows normal sinus rhythm at 76 with flipped T waves in aVR and less than [address] elevation in V1 V2. Lab evaluation relatively unremarkable except a troponin of 114. We will admit her for serial troponins, gradual reduction in blood pressure, and Doppler evaluation of her bilateral carotid arteries. Home medications list reviewed: Yes (Hydralazine, losartan, diuretic, aspirin, metformin) - Past Medical/Surgical History Has patient received pneumonia vaccine in the past: Yes Diabetic: No -: Hypertension -: CHF Psychosocial/ Personal History: Lives at home. She has caregivers twice daily and a weekly medication organizer friend and irrigator sprinkling system - Social History Smoking Status: Unknown if ever smoked Alcohol use: No CD- Drugs: No Caffeine use: Yes Place of Residence: Home Review of Systems 10-point ROS is otherwise unremarkable General: Malaise Eyes: Vision Change, Other (Left eye) ENT: Unremarkable Respiratory: Unremarkable Cardiovascular: Unremarkable Gastrointestinal: Unremarkable Genitourinary: Unremarkable Musculoskeletal: Unremarkable Integumentary: Unremarkable Neurological: Unremarkable Lymphatics: Unremarkable Physical Examination - Physical Exam General: Alert, In no apparent distress, Oriented x3 HEENT: Atraumatic, Normocephalic Neck: Supple Respiratory: Normal air movement Cardiovascular: Normal pulses, Regular rate/rhythm, Normal S1 S2, Other (lower extremities dry with poor turgor) Capillary refill: <2 Seconds Gastrointestinal: Normal bowel sounds Musculoskeletal: No swelling, No contractures Integumentary: No rashes Neurological: Normal speech, Normal tone, Normal affect Lymphatics: No axilla or inguinal lymphadenopathy External genitalia: Deferred Rectal: Deferred - Studies Laboratory Data (last 24 hrs) 03/16/24 03/16/24 03/16/24 13:50 13:50 13:50 WBC 8.80 Hgb 11.2 L Hct 33.2 L Plt Count 316 PT 11.3 INR 1.08 Sodium 141 Potassium 4.0 BUN 13 Creatinine 1.02 Glucose 87 Magnesium 2.0 Total Bilirubin 0.3 AST < 10 L ALT 16 Alkaline Phosphatase 90 Lipase 24 Assessment and Plan - Plan Hypertensive urgency with elevated troponin Losartan 50 mg p.o. daily Hydralazine 50 mg p.o. twice daily Aspirin 81 mg p.o. daily Monitor and trend blood pressure reading Monitor and trend serial troponins Pain control O2 as needed Visual change with elevated BP (resolved) bilateral carotid Doppler VTE/GI prophylaxis Incidental finding on chest x-ray with a positive suprahilar nodule radiology recommends repeat evaluation in 6 to 12 months, patient and friend/caregiver notified Discharge Plan: Home Plan to discharge in: 48 Hours - Advance Directives Does patient have a Living Will: No Does patient have a Durable POA for Healthcare: No - Code Status/Comfort Care Code Status Assessed: Yes (Full)
[2024-03-16] MEDS ORDERED: GLUCAGON 1 MG/VIAL IM PRN (18:27)
[2024-03-16] MEDS ORDERED: D10W 125 ML IV PRN (18:27)
[2024-03-16] MEDS: HYDRALAZINE HCL 25 MG TABLET PO SCH (21:00)
[2024-03-16] MEDS: INSULIN REGULAR (HUMAN) 100 UNIT/ML SQ SCH (21:00)
--- NOTE | 2024-03-16 21:16 | RAD REPORT ---
EXAMINATION: US CAROTID DUPLEX CLINICAL INDICATION: , 73 years old. left neck discomfort, transient blurred vision. TECHNIQUE: Real-time grayscale, color flow and spectral Doppler sonographic images were obtained of t extracranial carotid system using a linear transducer. [id number]. COMPARISON: CTA neck 10/16/2023 FINDINGS: RIGHT: Common carotid artery: 97 cm/s Internal carotid artery: 58 cm/s External carotid artery: 69 cm/s Right ICA/CCA ratio: 0.6 Plaque Moderate Calcified and noncalcified Vertebral artery Antegrade LEFT: Common carotid artery: 51 cm/s Internal carotid artery: 50 cm/s External carotid artery: 24 cm/s lEFT ICA/CCA ratio: 1.3 Plaque Moderate Calcified and noncalcified Vertebral artery Antegrade IMPRESSION: No hemodynamically significant stenosis (greater than 50%) within the extracranial internal carotid a portia.
[2024-03-17] MEDS ORDERED: HYDRALAZINE HCL 25 MG TABLET ONE ×3 (02:37→14:46)
[2024-03-17] MEDS ORDERED: ASPIRIN EC 81 MG TAB PO ONE (10:05)
[2024-03-17] MEDS ORDERED: LOSARTAN POTASSIUM 50 MG TABLET ONE (10:05)
[2024-03-17] MEDS ORDERED: ENOXAPARIN 40 MG/0.4 ML SQ ONE (10:05)
[2024-03-17] MEDS: LOSARTAN POTASSIUM 50 MG TABLET PO SCH (10:07)
[2024-03-17] MEDS: ASPIRIN EC 81 MG TAB PO SCH (10:07)
[2024-03-17] MEDS: ENOXAPARIN 40 MG/0.4 ML SQ SCH (10:07)
[2024-03-17] MEDS ORDERED: HYDRALAZINE HCL 20 MG/ML VIAL ONE (12:32)
[2024-03-17] MEDS: HYDRALAZINE HCL 20 MG/ML VIAL IV PRN (12:50)
[2024-03-17] MEDS ORDERED: LOSARTAN POTASSIUM 50 MG TABLET PO SCH (12:56)
[2024-03-17] MEDS: NIFEDIPINE XL 30 MG TABLET PO SCH (13:00)
[2024-03-17] MEDS: SPIRONOLACTONE 100 MG TAB PO ONE (14:00)
[2024-03-17] MEDS: HYDRALAZINE HCL 25 MG TABLET PO SCH (14:42)
--- NOTE | 2024-03-17 16:29 | P.PN ---
Subjective Date of Service: 03/17/24 Chief Complaint: Hypertensive urgency, elevated troponin Subjective: No new changes No overnight event, patient has no complaint, no chest pain or headache or shortness of breath. Review of Systems Other: Consitutional; fever(-), chills (-), rigor(-), night sweat(-), unintentional weight loss(-), malaise (-) HEENT; diplopia (-), rhinorrhea (-), epistaxis (-), otorrhea (-), otalgia (-) Respiratory; shortness of breath (-), wheezing (-), cough (-), sputum (-), pleuritic chest pain (-) Cardiovascular; chest pain (-), peripheral edema (-), paroxysmal nocturnal dyspnea (-), orthopnea (-) Gastrointestinal; nausea (-), vomiting (-), abdominal pain (-), diarrhea (-), constipation (-), melena (-), hematochezia (-) Genitourinary; urinary frequency (-), dysuria (-), urgency (-), flank pain (-), gross hematuria (-), incontinence (-) Skin; rash (-), pruritus (-) 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 General: Not acutely ill looking, in no apparent distress,. HEENT: Normocephalic, atraumatic, nonicteric sclera, nonanemic conjunctive. Neck: Supple, without JVD or goiter or thyroid mass. Respiratory: Normal breathing effort, clear to auscultation bilaterally, no crackles no wheezing or rhonchi. Cardiovascular: Regular rate and rhythm, S1, S2 normal, no murmur no gallop. Gastrointestinal: Normal bowel sounds, nondistended, nontender, No ascites, , No masses, no hepatosplenomegaly. Extremities : No clubbing, No peripheral edema,. Integumentary: No rashes, petechia, suspected lesions. Lymphatics: No axilla or cervical lymphadenopathy. Neurology; alert awake oriented x3, no focal neurologic deficit, normal affection . mood and behavior. Assessment And Plan - Plan Ms. Laird is a 73-year-old female with past medical history of uncontrolled hypertension, hyperlipidemia, CVA, and diabetes. Her blood pressure medicine was recently escalated. On her friend's arrival to her home today, she states Ms. Laird complained of visual changes in her left eye with some mild dizziness. She took her blood pressure and it was noted to be quite elevated and prompted her to come to the emergency department. Her initial pressure was 217/84 with a heart rate of 76. She was treated with Nitropaste, 20 mg of Lasix IV, metoprolol 25 mg p.o., Norvasc 10 mg p.o., 81 mg aspirin p.o. NS small fluid bolus of 500 mL of normal saline followed by 20 mg of Lasix IV push. Ms. Laird states her symptoms resolved and her repeat blood pressure was 196/75 with heart rate of 70. She denies chest pain, any further visual changes, or dizziness. She was admitted for serial troponins, gradual reduction in blood pressure, and Doppler evaluation of her bilateral carotid arteries. #1 hypertensive urgency Gradually improving, no endorgan damage, will resume her losartan, hydralazine, add 30 mg nifedipine XL, IV hydralazine as needed #2 elevated troponin due to #1 Troponin plateaued around 100, twelve-lead EKG shows no ST or T wave change, no ischemic chest pain #3 history of type 2 diabetes Resume metformin, monitor blood sugar and low-dose insulin sliding scale DVT prophylaxis enoxaparin subcu
[2024-03-18] MEDS: SPIRONOLACTONE 100 MG TAB PO SCH (07:42)
[2024-03-18] MEDS: METFORMIN HCL 500 MG TAB PO SCH (07:42)
[2024-03-18] MEDS ORDERED: ASPIRIN EC 81 MG TAB PO SCH (09:00)
[2024-03-18] MEDS: carvediloL 12.5 MG TAB PO SCH (11:34)
--- NOTE | 2024-03-18 12:34 | EKG ---
Test Date: 2024-03-16 Test Time: 14:40:40 Beater Out Leveling Machine: GRANT MEASUREMENT RESULTS: Intervals: Rate: 76 WV: 158 QRSD: 92 QT: 420 QTc: 472 [place]: P: 68 WV: 158 QRS: 17 T: 56 INTERPRETIVE STATEMENTS: Normal sinus rhythm Septal infarct, age undetermined Abnormal ECG Compared to ECG 11/14/2023 16:10:04 Myocardial infarct finding now present ST (T wave) deviation no longer present Possible ischemia no longer present Electronically Signed On 03-18-24 12:31:19 CASH APPLICATION REPRESENTATIVE by Mack Dugan
--- NOTE | 2024-03-18 14:34 | P.PN ---
Subjective Date of Service: 03/18/24 Chief Complaint: Hypertensive urgency, elevated troponin Subjective: No new changes Patient said she has no complaint, doing well denied any chest pain or headache or dyspnea. Review of Systems Other: Consitutional; fever(-), chills (-), rigor(-), night sweat(-), unintentional weight loss(-), malaise (-) HEENT; diplopia (-), rhinorrhea (-), epistaxis (-), otorrhea (-), otalgia (-) Respiratory; shortness of breath (-), wheezing (-), cough (-), sputum (-), pleuritic chest pain (-) Cardiovascular; chest pain (-), peripheral edema (-), paroxysmal nocturnal dyspnea (-), orthopnea (-) Gastrointestinal; nausea (-), vomiting (-), abdominal pain (-), diarrhea (-), constipation (-), melena (-), hematochezia (-) Genitourinary; urinary frequency (-), dysuria (-), urgency (-), flank pain (-), gross hematuria (-), incontinence (-) Skin; rash (-), 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 General: Not acutely ill looking, in no apparent distress,. HEENT: Normocephalic, atraumatic, nonicteric sclera, nonanemic conjunctive. Neck: Supple, without JVD or goiter or thyroid mass. Respiratory: Normal breathing effort, clear to auscultation bilaterally, no crackles no wheezing or rhonchi. Cardiovascular: Regular rate and rhythm, S1, S2 normal, no murmur no gallop. Gastrointestinal: Normal bowel sounds, nondistended, nontender, No ascites, , No masses, no hepatosplenomegaly. Extremities : No clubbing, No peripheral edema,. Integumentary: No rashes, petechia, suspected lesions. Lymphatics: No axilla or cervical lymphadenopathy. Neurology; alert awake oriented x3, no focal neurologic deficit, normal affection . mood and behavior. - Studies Microbiology Data (last 24 hrs): 03/16/24 16:20 Clean Catch Urine [place] Count - Final >100,000 CFU/ML. 03/16/24 16:20 Clean Catch Urine - Final Escherichia Coli Assessment And Plan - Plan Ms. Laird is a 73-year-old female with past medical history of uncontrolled hypertension, hyperlipidemia, CVA, and diabetes. Her blood pressure medicine was recently escalated. On her friend's arrival to her home today, she states Ms. Laird complained of visual changes in her left eye with some mild dizziness. She took her blood pressure and it was noted to be quite elevated and prompted her to come to the emergency department. Her initial pressure was 217/84 with a heart rate of 76. She was treated with Nitropaste, 20 mg of Lasix IV, metoprolol 25 mg p.o., Norvasc 10 mg p.o., 81 mg aspirin p.o. NS small fluid bolus of 500 mL of normal saline followed by 20 mg of Lasix IV push. Ms. Laird states her symptoms resolved and her repeat blood pressure was 196/75 with heart rate of 70. She denies chest pain, any further visual changes, or dizziness. She was admitted for serial troponins, gradual reduction in blood pressure, and Doppler evaluation of her bilateral carotid arteries. #1 hypertensive urgency no endorgan damage, her blood pressure gradually improving but still fluctuating , mild sinus tachycardia noted, I will continue losartan, hydralazine, Aldactone but change nifedipine to carvedilol 12.5 mg twice daily #2 elevated troponin due to #1 Troponin plateaued around 100, twelve-lead EKG shows no ST or T wave change, no chest pain #3 controlled type 2 diabetes Resume metformin, monitor blood sugar and low-dose insulin sliding scale DVT prophylaxis enoxaparin subcu
[2024-03-18] MEDS: cloNIDine HCL 0.1 MG TAB PO ONE (17:35)
[2024-03-18] MEDS: ACETAMINOPHEN 325 MG TABLET PO PRN (23:00)
[2024-03-18] MEDS: cloNIDine HCL 0.1 MG TAB PO SCH (23:01)
[2024-03-19 09:35] LABS: SARS-CoV-2 Antigen CONTROL BLUE LINE VIS/BG OK; SARS-CoV-2 Antigen Rapid Res Negative (Negative)
--- NOTE | 2024-03-19 13:10 | P.PN ---
Subjective Date of Service: 03/19/24 Chief Complaint: Hypertensive urgency, elevated troponin Subjective: New changes a fever of 101 noted, no clear source of infection, denied any urinary symptom or GI symptom or respiratory symptoms. Review of Systems Other: Consitutional; fever(+), chills (-), rigor(-), night sweat(-), unintentional weight loss(-), malaise (-) HEENT; diplopia (-), rhinorrhea (-), epistaxis (-), otorrhea (-), otalgia (-) Respiratory; shortness of breath (-), wheezing (-), cough (-), sputum (-), pleuritic chest pain (-) Cardiovascular; chest pain (-), peripheral edema (-), paroxysmal nocturnal dyspnea (-), orthopnea (-) Gastrointestinal; nausea (-), vomiting (-), abdominal pain (-), diarrhea (-), constipation (-), melena (-), hematochezia (-) Genitourinary; urinary frequency (-), dysuria (-), urgency (-), flank pain (-), gross hematuria (-), incontinence (-) Skin; rash (-), 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 General: Not acutely ill looking, in no apparent distress,. HEENT: Normocephalic, atraumatic, nonicteric sclera, nonanemic conjunctive. Neck: Supple, without JVD or goiter or thyroid mass. Respiratory: Normal breathing effort, clear to auscultation bilaterally, no crackles no wheezing or rhonchi. Cardiovascular: Regular rate and rhythm, S1, S2 normal, no murmur no gallop. Gastrointestinal: Normal bowel sounds, nondistended, nontender, No ascites, , No masses, no hepatosplenomegaly. Extremities : No clubbing, No peripheral edema,. Integumentary: No rashes, petechia, suspected lesions. Lymphatics: No axilla or cervical lymphadenopathy. Neurology; alert awake oriented x3, no focal neurologic deficit, normal affection . mood and behavior. - Studies Microbiology Data (last 24 hrs): 03/16/24 16:20 Clean Catch Urine [place] Count - Final >100,000 CFU/ML. 03/16/24 16:20 Clean Catch Urine - Final Escherichia Coli Assessment And Plan - Plan Ms. Laird is a 73-year-old female with past medical history of uncontrolled hypertension, hyperlipidemia, CVA, and diabetes. Her blood pressure medicine was recently escalated. On her friend's arrival to her home today, she states Ms. Laird complained of visual changes in her left eye with some mild dizziness. She took her blood pressure and it was noted to be quite elevated and prompted her to come to the emergency department. Her initial pressure was 217/84 with a heart rate of 76. She was treated with Nitropaste, 20 mg of Lasix IV, metoprolol 25 mg p.o., Norvasc 10 mg p.o., 81 mg aspirin p.o. NS small fluid bolus of 500 mL of normal saline followed by 20 mg of Lasix IV push. Ms. Laird states her symptoms resolved and her repeat blood pressure was 196/75 with heart rate of 70. She denies chest pain, any further visual changes, or dizziness. She was admitted for serial troponins, gradual reduction in blood pressure, and Doppler evaluation of her bilateral carotid arteries. #1 hypertensive urgency no endorgan damage, her blood pressure gradually improving but still fluctuating , I will continue losartan, hydralazine, Aldactone, carvedilol, chlorthalidone, I will order follow-up BMP tomorrow morning #2 elevated troponin due to #1 Troponin plateaued around 100, twelve-lead EKG shows no ST or T wave change, no chest pain #3 controlled type 2 diabetes Resume metformin, monitor blood sugar and low-dose insulin sliding scale, will obtain hemoglobin A1c tomorrow morning #4 fever of unclear etiology, likely viral Urine culture on admission growing E. coli but patient having no urinary symptoms, all viral antigen test negative, I will obtain a blood culture and a follow-up chest x-ray and start her on empiric antibiotics with ceftriaxone DVT prophylaxis enoxaparin subcu
[2024-03-19] MEDS: ACETAMINOPHEN 500 MG TAB PO PRN (14:23)
[2024-03-19] MEDS: CEFTRIAXONE 1,000 MG in NA CHLORIDE 0.9% 50 ML IVPB SCH (14:23)
[2024-03-19] MEDS: CHLORTHALIDONE 25 MG TAB PO SCH (17:24)
--- NOTE | 2024-03-19 18:43 | RAD REPORT ---
EXAM: CT brain without contrast HISTORY: Slurred speech. COMPARISON: October 2023 TECHNIQUE: Multiple contiguous axial images were obtained and a CT of the brain without contrast. Sagittal and coronal reformats were performed. Automated exposure control, adjustment of the mA and/or kV according to patient size, and/or itera tive reconstruction. Unless otherwise specified, incidental findings do not require dedicated imaging follow-u FINDINGS: An intracranial bleed is not seen Ventricles are normal caliber No extra-axial fluid collection noted Low-density has developed within the left bello radiata and left centrum semiovale. This probably re presents acute infarct. Additionally there has been progression of low-density area within the left occipital lobe probably r epresenting acute infarct superimposed over chronic infarct. No fluid within the visualized sinuses or mastoids noted. IMPRESSION: Acute left cerebral infarctions suspected. The patient's nurse Michelle and Vale Guardado were notified at 6:37 PM March 19, 2024
[2024-03-19 19:03] LABS: Absolute Basophils 0.1 K/uL (0-0.5); Absolute Lymphocytes (CBC) 1.9 K/uL (0.7-4.9); Absolute Monocytes 0.5 K/uL (0.1-1.3); Absolute Neutrophil 4.7 K/uL (1.8-8.0); Basophils % 0.9 % (0-1.3); Eosinophils % 0.7 % (0-4.4); Hematocrit 28.7 % (36.0-45.0); Hemoglobin 9.7 g/dL (12.0-15.0); Lymphocytes % 26.2 % (15.3-44.8); MCH 28.9 pg (27.0-35.0); MCHC 33.9 g/dL (32.0-36.0); MCV 85.1 fL (80-100); MPV 8.8 fL (7.6-11.3); Monocytes % 7.1 % (3.3-12.3); Neutrophils % 65.1 % (41.7-73.7); Nucleated Red Blood Cells % 0.1 % (0-0); Platelets 252 thou/uL (152-406); RBC Red Blood Cell Count 3.38 M/uL (3.86-4.86); Red Cell Distribution Width 14.7 % (12.1-15.2)
[2024-03-19 19:04] LABS: PTT, Activated Partial Thromb 37.3 SECONDS (24.3-36.9); Protime INR 1.05
--- NOTE | 2024-03-19 19:14 | P.PN ---
Date of Service: 03/19/24 Patient is a 73-year-old -[place] female who was admitted for hypertensive crisis after she presented with dizziness. Her SBP was more than 210. During this admission, her hypertensive regimen have been adjusted. Last SBP was 157 mmHg. Code stroke activated at 6:15 PM after patient developed acute right-sided weakness, facial droop and expressive aphasia. Stat CT head revealed an acute left cerebral infarction. Discussed case with neurology. Stroke is most likely older than 6 hours now captured on CT scan. Therefore, patient will not be a candidate for intravenous thrombolysis. Plan: Obtain a CTA of head and neck and transfer to higher level of care if significant vascular occlusion noted Dual antiplatelet therapy, high intensity statin and folic acid PT/OT/3RD MATE
[2024-03-19 19:16] LABS: Anion Gap 12.2 mEq/L (5.0-15.0); Magnesium 2.1 mg/dL (1.6-2.4); Phosphorus 2.8 mg/dL (2.5-4.9); Potassium 3.2 mEq/L (3.5-5.1)
--- NOTE | 2024-03-19 19:25 | RAD REPORT ---
EXAMINATION: CTA HEAD CLINICAL INDICATION: Slurred speech TECHNIQUE: Axial CT images were obtained through the head after 100 cc Isovue-370 intravenous contras t utilizing angiographic protocol with 3D post-processing (maximum intensity projection images, volume rendered images and/or shaded surface rendered images). One or more of the following dose red uction techniques were used: Automated exposure control, adjustment of the mA and/or kV according to patient size, and/or iterative reconstruction. Unless otherwise specified, incidental findings do not require dedicated imaging follow-up. COMPARISON: None FINDINGS: Chronic occlusion distal left internal carotid artery. Severe calcification present. Left anterior cerebral and left middle cerebral arteries are patent but somewhat diminished in calibe r. Mild areas of stenosis involving the posterior cerebral artery. mild to moderate calcification distal right internal carotid artery. Basilar is patent. An aneurysm not noted. IMPRESSION: Chronic occlusion distal left internal carotid artery. Left anterior circulation supplied by a very small amount of flow within the left internal carotid ar ashleigh as well as the collateral flow via the anterior via the anterior communicating artery
--- NOTE | 2024-03-19 19:27 | RAD REPORT ---
EXAMINATION: Neck Angio CLINICAL INDICATION: Slurred speech TECHNIQUE: Axial CT images were obtained from the aortic arch to the skull base after intravenous adm inistration of 100 cc Isovue-370 utilizing angiographic protocol. Multiplanar reformats, as well as 3D post-processing (maximum intensity projection images, volume rendered images and/or shaded surface rendered images) were generated and reviewed. One or more of the following dose reduction techniques were used: Automated exposure control, adjustment of the mA and/or kV according to patient size, and/or iterative reconstruction. Unless otherwise specified, incidental findings do not require dedicated imaging follow-up. COMPARISON: 2023. FINDINGS: The visualized aortic arch and great vessels do not demonstrate a significant abnormality Occlusion of the entire left internal carotid artery. This is unchanged Many areas of severe stenosis left vertebral artery distal left vertebral artery is occluded these ar e all chronic. Mild plaque left carotid bulb. Moderate calcified plaque distal left carotid artery. 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
--- NOTE | 2024-03-19 19:28 | RAD REPORT ---
Procedure: Chest Single View HISTORY: Cough COMPARISON: September 2023 FINDINGS: 12 mm right upper lobe nodule unchanged Left lung appears clear No significant pleural effusion noted. The heart is normal size. IMPRESSION: 12 mm right upper lobe nodule unchanged. Follow-up chest x-ray in 6 months recommended
[2024-03-19] MEDS: POTASSIUM 25 MEQ EFFERV TAB PO ONE (21:12)
[2024-03-19] MEDS: ATORVASTATIN 80 MG TAB PO SCH (21:12)
[2024-03-20 05:05] LABS: Absolute Basophils 0.1 K/uL (0-0.5); Absolute Eosinophils 0.1 K/uL (0-0.5); Absolute Lymphocytes (CBC) 1.6 K/uL (0.7-4.9); Absolute Monocytes 0.6 K/uL (0.1-1.3); Absolute Neutrophil 3.2 K/uL (1.8-8.0); Basophils % 1.4 % (0-1.3); Eosinophils % 1.5 % (0-4.4); Hematocrit 29.2 % (36.0-45.0); Hemoglobin 9.8 g/dL (12.0-15.0); Lymphocytes % 28.4 % (15.3-44.8); MCH 28.8 pg (27.0-35.0); MCHC 33.8 g/dL (32.0-36.0); MCV 85.2 fL (80-100); MPV 9.1 fL (7.6-11.3); Monocytes % 10.4 % (3.3-12.3); Neutrophils % 58.3 % (41.7-73.7); Platelets 253 thou/uL (152-406); RBC Red Blood Cell Count 3.42 M/uL (3.86-4.86); Red Cell Distribution Width 14.7 % (12.1-15.2)
[2024-03-20 05:57] LABS: Anion Gap 11.6 mEq/L (5.0-15.0); Potassium 3.6 mEq/L (3.5-5.1)
[2024-03-20] MEDS ORDERED: HYDRALAZINE HCL 20 MG/ML VIAL IV PRN (06:36)
--- NOTE | 2024-03-20 07:28 | RAD REPORT ---
Procedure: Chest Pa And Lat (2 Views) HISTORY: Cough COMPARISON: March 19, 2024 FINDINGS: Stable right upper lobe nodule. The remainder of the lungs appear clear of acute infiltrate. No significant pleural effusion noted. The heart is normal size.
[2024-03-20] MEDS ORDERED: FOLIC ACID 1 MG in NA CHLORIDE 0.9% 50 ML IV SCH (09:00)
[2024-03-20] MEDS: FOLIC ACID 1 MG in NA CHLORIDE 0.9% 50 ML IV SCH (09:48)
[2024-03-20] MEDS: POTASSIUM CL SA 10 MEQ TAB PO ONE (09:48)
[2024-03-20] MEDS: ASPIRIN EC 81 MG TAB PO SCH (09:49)
[2024-03-20] MEDS: CLOPIDOGREL 75 MG TABLET PO SCH (09:49)
--- NOTE | 2024-03-20 12:12 | P.PN ---
Subjective Date of Service: 03/20/24 Chief Complaint: Hypertensive urgency, elevated troponin Subjective: New changes Code stroke was called for dysarthria and left upper extremity weakness yesterday evening, she stated she is doing fine, she had a stroke recently few months ago, denied any headache or dysphagia or dyspnea. Review of Systems Other: Consitutional; fever(-), chills (-), rigor(-), night sweat(-), unintentional weight loss(-), malaise (-) HEENT; diplopia (-), rhinorrhea (-), epistaxis (-), otorrhea (-), otalgia (-) Respiratory; shortness of breath (-), wheezing (-), cough (-), sputum (-), pleuritic chest pain (-) Cardiovascular; chest pain (-), peripheral edema (-), paroxysmal nocturnal dyspnea (-), orthopnea (-) Gastrointestinal; nausea (-), vomiting (-), abdominal pain (-), diarrhea (-), constipation (-), melena (-), hematochezia (-) Genitourinary; urinary frequency (-), dysuria (-), urgency (-), flank pain (-), gross hematuria (-), incontinence (-) Skin; rash (-), 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 General: Not acutely ill looking, in no apparent distress,. HEENT: Normocephalic, atraumatic, nonicteric sclera, nonanemic conjunctive. Neck: Supple, without JVD or goiter or thyroid mass. Respiratory: Normal breathing effort, clear to auscultation bilaterally, no crackles no wheezing or rhonchi. Cardiovascular: Regular rate and rhythm, S1, S2 normal, no murmur no gallop. Gastrointestinal: Normal bowel sounds, nondistended, nontender, No ascites, , No masses, no hepatosplenomegaly. Extremities : No clubbing, No peripheral edema,. Integumentary: No rashes, petechia, suspected lesions. Lymphatics: No axilla or cervical lymphadenopathy. Neurology; alert awake oriented x3, left. Mild dysarthria, motor weakness 4 out of 5 of right upper extremity Assessment And Plan - Plan Ms. Laird is a 73-year-old female with past medical history of uncontrolled hypertension, hyperlipidemia, CVA, and diabetes. Her blood pressure medicine was recently escalated. On her friend's arrival to her home today, she states Ms. Laird complained of visual changes in her left eye with some mild dizziness. She took her blood pressure and it was noted to be quite elevated and prompted her to come to the emergency department. Her initial pressure was 217/84 with a heart rate of 76. She was treated with Nitropaste, 20 mg of Lasix IV, metoprolol 25 mg p.o., Norvasc 10 mg p.o., 81 mg aspirin p.o. NS small fluid bolus of 500 mL of normal saline followed by 20 mg of Lasix IV push. Ms. Laird states her symptoms resolved and her repeat blood pressure was 196/75 with heart rate of 70. She denies chest pain, any further visual changes, or dizziness. She was admitted for serial troponins, gradual reduction in blood pressure, and Doppler evaluation of her bilateral carotid arteries. #1 possible new ischemic stroke in old stroke She was complaining of dysarthria and right upper extremity paresis last night but which is her baseline, I do not see any new neurologic deficit today. CT of the brain shows low-density in the left occipital area, no large vessel occlusion by CT of the head and neck, MRI, transthoracic echocardiogram pending, normal sinus rhythm on telemetry, will continue aspirin and Plavix, statin, permissive hypertension #2 hypertensive urgency Permissive hypertension I will continue losartan, hydralazine, Aldactone, carvedilol, chlorthalidone, IV hydralazine if blood pressure over 220/120 mmHg #3 elevated troponin due to #1 Troponin plateaued around 100, twelve-lead EKG shows no ST or T wave change, no chest pain #4 history of type 2 diabetes Hemoglobin A1c 4.5, overcorrected, I will discontinue metformin monitor blood sugar and low-dose insulin sliding scale, #4 fever of unclear etiology, likely viral Became afebrile, clear chest x-ray, urine culture on admission growing E. coli but patient having no urinary symptoms, all viral antigen test negative, blood culture no growth to date, continue empiric antibiotics with ceftriaxone until final blood culture comes back #5 anemia of chronic disease Hemoglobin stable around 10, no clinical bleeding DVT prophylaxis enoxaparin subcu Disposition; SNF placement requested per her family
--- NOTE | 2024-03-20 14:40 | ECHO ---
HEIGHT: 5 ft 2 in WEIGHT: 125 lb 0.034 oz DATE OF STUDY: 03/20/[address]: Prince Brett Moon MD 2-DIMENSIONAL: YES M.MODE: YES DOPPLER: YES COLOR FLOW: YES TDS: NO PORTABLE: YES DEFINITY: NO BUBBLE STUDY: NO DIAGNOSIS: CARDIAC HISTORY: CATHERIZATION: SURGERY: PROSTHETIC VALVE: PACEMAKER: MEASUREMENTS (cm) DIASTOLIC (NORMALS) SYSTOLIC (NORMALS) IVSd 1.0 (0.6-1.2) LA Diam 3.0 (1.9-4.0) LVEF 60-65% LVIDd 3.8 (3.5-5.7) LVIDs 2.8 (2.0-3.5) %FS 27% LVPWd 1.2 (0.6-1.2) Ao Diam 2.2 (2.0-3.7) 2 DIMENSIONAL ASSESSMENT: RIGHT ATRIUM: NORMAL LEFT ATRIUM: NORMAL RIGHT VENTRICLE: NORMAL LEFT VENTRICLE: NORMAL TRICUSPID VALVE: TRACE TRICUSPID REGURGITATION MITRAL VALVE: NORMAL PULMONIC VALVE: NORMAL AORTIC VALVE: NORMAL PERICARDIAL EFFUSION: NONE AORTIC ROOT: NORMAL LEFT VENTRICULAR WALL MOTION: NORMAL. DOPPLER/COLOR FLOW: GRADE I DIASTOLIC DYSFUNCTION. COMMENTS: 1. NORMAL LEFT VENTRICULAR SYSTOLIC FUNCTION. LEFT VENTRICULAR EJECTION FRACTION 60-65%. NORMAL WALL MOTION. 2. GRADE I DIASTOLIC DYSFUNCTION. 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
--- NOTE | 2024-03-20 19:41 | RAD REPORT ---
EXAMINATION: MRI BRAIN WITHOUT CONTRAST CLINICAL INDICATION: Female, 73 years old. acute aphasia, facial droop TECHNIQUE: Multiplanar multisequence MR images of the brain were obtained without intravenous contras t. Unless otherwise specified, incidental findings do not require dedicated imaging follow-up. [id number]. COMPARISON: Head CT yesterday FINDINGS: INTRACRANIAL: Punctate acute infarct in the right thalamus. Remote left parietal/occipital region cor tical infarct. Remote cerebellar infarcts. No significant mass effect or midline shift.No hydrocephalus. Mild chronic small vessel ischemic changes.Severe cerebral atrophy. Hyperintense T2/F LAIR signal extends into the left midbrain and ab. No associated abnormality on the right. This likely is secondary to Wallerian degeneration. Partially empty sella, typically normal variant. VASCULATURE: Normal signal voids in the larger intracranial arteries and dural venous sinuses. SINUSES: The paranasal sinuses are clear.No mastoid effusions. BONE: The marrow signal pattern is within normal limits. IMPRESSION: Punctate acute infarct in the right thalamus. Chronic changes including remote left cerebral and bilateral cerebellar infarcts as well as age advan alexx cerebral atrophy.
[2024-03-20] MEDS: ENSURE ENLIVE 237 ML CAN PO SCH (21:12)
[2024-03-21 05:03] LABS: Anion Gap 9.8 mEq/L (5.0-15.0); Potassium 3.8 mEq/L (3.5-5.1)
[2024-03-21] MEDS: POTASSIUM CL SA 10 MEQ TAB PO ONE (06:05)
--- NOTE | 2024-03-21 13:25 | P.PN ---
Subjective Date of Service: 03/21/24 Chief Complaint: Hypertensive urgency, elevated troponin Subjective: No new changes She has no complaint, denied any weakness or paresthesia or dysphagia or dysarthria. Review of Systems Other: Consitutional; fever(-), chills (-), rigor(-), night sweat(-), unintentional weight loss(-), malaise (-) HEENT; diplopia (-), rhinorrhea (-), epistaxis (-), otorrhea (-), otalgia (-) Respiratory; shortness of breath (-), wheezing (-), cough (-), sputum (-), pleuritic chest pain (-) Cardiovascular; chest pain (-), peripheral edema (-), paroxysmal nocturnal dyspnea (-), orthopnea (-) Gastrointestinal; nausea (-), vomiting (-), abdominal pain (-), diarrhea (-), constipation (-), melena (-), hematochezia (-) Genitourinary; urinary frequency (-), dysuria (-), urgency (-), flank pain (-), gross hematuria (-), incontinence (-) Skin; rash (-), pruritus (-) [employer]; headache (-), paresthesia (-), numbness (-), paralysis (-) Physical Examination - Vital Signs Temperature: 97.5 F Blood Pressure: 183/75 Pulse: 52 Respirations: 16 Pulse Ox (%): 100 - Physical Exam Other Physical/Emotional Findings: - Physical Exam. General: Not acutely ill looking, in no apparent distress,. HEENT: Normocephalic, atraumatic, nonicteric sclera, nonanemic conjunctive. Neck: Supple, without JVD or goiter or thyroid mass. Respiratory: Normal breathing effort, clear to auscultation bilaterally, no crackles no wheezing or rhonchi. Cardiovascular: Regular rate and rhythm, S1, S2 normal, no murmur no gallop. Gastrointestinal: Normal bowel sounds, nondistended, nontender, No ascites, , No masses, no hepatosplenomegaly. Extremities : No clubbing, No peripheral edema,. Integumentary: No rashes, petechia, suspected lesions. Lymphatics: No axilla or cervical lymphadenopathy. Neurology; alert awake oriented x3, motor 5/5 of both extremity, sensory grossly intact, mild dysarthria, Assessment And Plan - Plan Ms. Laird is a 73-year-old female with past medical history of uncontrolled hypertension, hyperlipidemia, CVA, and diabetes. Her blood pressure medicine was recently escalated. On her friend's arrival to her home today, she states Ms. Laird complained of visual changes in her left eye with some mild dizziness. She took her blood pressure and it was noted to be quite elevated and prompted her to come to the emergency department. Her initial pressure was 217/84 with a heart rate of 76. She was treated with Nitropaste, 20 mg of Lasix IV, metoprolol 25 mg p.o., Norvasc 10 mg p.o., 81 mg aspirin p.o. NS small fluid bolus of 500 mL of normal saline followed by 20 mg of Lasix IV push. Ms. Laird states her symptoms resolved and her repeat blood pressure was 196/75 with heart rate of 70. She denies chest pain, any further visual changes, or dizziness. She was admitted for serial troponins, gradual reduction in blood pressure, and Doppler evaluation of her bilateral carotid arteries. #1 new lacunar infarct in right thalamus Subjective right upper extremity paresis, dysarthria, no new neurologic symptoms Brain MRI demonstrated punctuated acute infarct in the right thalamus along with chronic left cerebral and bilateral cerebellar infarctions. No tPA was given, telemetry reviewed, paroxysmal atrial fibrillation noted, CT of the brain shows low-density in the left occipital area, no large vessel occlusion by CT of the head and neck, transthoracic echocardiogram result reviewed, normal left ventricular ejection fraction, no valvular heart disease, no source of intracardiac thromboembolism I will add apixaban 5 mg twice daily continue Plavix, statin, permissive hypertension #2 paroxysmal atrial fibrillation Apixaban 5 mg twice daily started today #3 hypertensive urgency Permissive hypertension I will continue losartan, hydralazine, Aldactone, carvedilol, chlorthalidone, IV hydralazine if blood pressure over 220/120 mmHg #4 elevated troponin due to #1 Troponin plateaued around 100, twelve-lead EKG shows no ST or T wave change, no chest pain #5 history of type 2 diabetes Hemoglobin A1c 4.5, overcorrected, metformin discontinued monitor blood sugar and low-dose insulin sliding scale, #6 fever of unclear etiology, likely viral Fever x1, became afebrile, clear chest x-ray, no leukocytosis or neutropenia, urine culture on admission growing E. coli but patient having no urinary symptoms, all viral antigen test negative, blood culture no growth to date, I will stop empiric antibiotics today and monitor body temperature #7 anemia of chronic disease Hemoglobin stable around 10, no clinical bleeding #8 asymptomatic bacteriuria with E. coli No treatment indicated, 3 days of ceftriaxone given for #6 DVT prophylaxis apixaban Disposition; SNF placement requested per her family
[2024-03-21] MEDS: APIXABAN 5 MG TABLET PO SCH (20:16)
[2024-03-22] MEDS: HYDRALAZINE HCL 10 MG TABLET PO SCH (09:05)
--- NOTE | 2024-03-22 11:12 | P.PN ---
Subjective Date of Service: 03/22/24 Chief Complaint: Hypertensive urgency, elevated troponin Subjective: No new changes She has no complaint, denied any weakness or paresthesia or dysphagia or dysarthria. Review of Systems Other: Consitutional; fever(-), chills (-), rigor(-), night sweat(-), unintentional weight loss(-), malaise (-) HEENT; diplopia (-), rhinorrhea (-), epistaxis (-), otorrhea (-), otalgia (-) Respiratory; shortness of breath (-), wheezing (-), cough (-), sputum (-), pleuritic chest pain (-) Cardiovascular; chest pain (-), peripheral edema (-), paroxysmal nocturnal dyspnea (-), orthopnea (-) Gastrointestinal; nausea (-), vomiting (-), abdominal pain (-), diarrhea (-), constipation (-), melena (-), hematochezia (-) Genitourinary; urinary frequency (-), dysuria (-), urgency (-), flank pain (-), gross hematuria (-), incontinence (-) Skin; rash (-), pruritus (-) 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 General: Not acutely ill looking, in no apparent distress,. HEENT: Normocephalic, atraumatic, nonicteric sclera, nonanemic conjunctive. Neck: Supple, without JVD or goiter or thyroid mass. Respiratory: Normal breathing effort, clear to auscultation bilaterally, no crackles no wheezing or rhonchi. Cardiovascular: Regular rate and rhythm, S1, S2 normal, no murmur no gallop. Gastrointestinal: Normal bowel sounds, nondistended, nontender, No ascites, , No masses, no hepatosplenomegaly. Extremities : No clubbing, No peripheral edema,. Integumentary: No rashes, petechia, suspected lesions. Lymphatics: No axilla or cervical lymphadenopathy. Neurology; alert awake oriented x3, motor 5/5 of both extremity, sensory grossly intact, mild dysarthria, Assessment And Plan - Plan Ms. Laird is a 73-year-old female with past medical history of uncontrolled hypertension, hyperlipidemia, CVA, and diabetes. Her blood pressure medicine was recently escalated. On her friend's arrival to her home today, she states Ms. Laird complained of visual changes in her left eye with some mild dizziness. She took her blood pressure and it was noted to be quite elevated and prompted her to come to the emergency department. Her initial pressure was 217/84 with a heart rate of 76. She was treated with Nitropaste, 20 mg of Lasix IV, metoprolol 25 mg p.o., Norvasc 10 mg p.o., 81 mg aspirin p.o. NS small fluid bolus of 500 mL of normal saline followed by 20 mg of Lasix IV push. Ms. Laird states her symptoms resolved and her repeat blood pressure was 196/75 with heart rate of 70. She denies chest pain, any further visual changes, or dizziness. She was admitted for serial troponins, gradual reduction in blood pressure, and Doppler evaluation of her bilateral carotid arteries. #1 new lacunar infarct in right thalamus Subjective right upper extremity weakness, dysarthria on March 19, normal neurologic exam except mild intermittent dysarthria Brain MRI demonstrated punctuated acute infarct in the right thalamus along with chronic left cerebral and bilateral cerebellar infarctions. No tPA was given, telemetry reviewed, paroxysmal atrial fibrillation noted, CT of the brain shows low-density in the left occipital area, no large vessel occlusion by CT of the head and neck, transthoracic echocardiogram result normal left ventricular ejection fraction, no valvular heart disease, no source of intracardiac thromboembolism apixaban 5 mg twice started, continue Plavix, statin, continue OT PT #2 paroxysmal atrial fibrillation Apixaban 5 mg twice daily #3 hypertensive urgency Not well-controlled, I will cut down carvedilol to 6.25 mg for asymptomatic bradycardia, add hydralazine 20 mg 3 times daily continue losartan, Aldactone, chlorthalidone, IV hydralazine #4 elevated troponin due to #1 Troponin plateaued around 100, twelve-lead EKG shows no ST or T wave change, no chest pain #5 history of type 2 diabetes Hemoglobin A1c 4.5, overcorrected, metformin discontinued monitor blood sugar and low-dose insulin sliding scale, #6 fever of unclear etiology, likely viral Fever x1, remain afebrile, clear chest x-ray, no leukocytosis or neutropenia, urine culture on admission growing E. coli but patient having no urinary symptoms, all viral antigen test negative, blood culture no growth to date, empiric antibiotic #7 anemia of chronic disease Hemoglobin stable around 10, no clinical bleeding #8 asymptomatic bacteriuria with E. coli No treatment indicated, DVT prophylaxis apixaban Disposition; SNF placement
[2024-03-22] MEDS: carvediloL 6.25 MG TAB PO SCH (17:14)
--- NOTE | 2024-03-22 22:00 | P.DS ---
Admission Date: 03/16/24 Discharge Date: 03/23/24 Disposition: TRANSFER TO SNF Discharge Condition: GOOD Reason for Admission: Hypertensive urgency, elevated troponin Brief History of Present Illness: Ms. Laird is a 73-year-old female with past medical history of hypertension, hyperlipidemia, CVA, and diabetes. Her blood pressure medicine was recently changed to increase her hydralazine from 25 mg p.o. twice daily to 50 mg p.o. twice daily in addition to her other medication. On her friend's arrival to her home today, she states Ms. Laird complained of visual changes in her left eye with some mild dizziness. She took her blood pressure and it was noted to be quite elevated and prompted her to come to the emergency department. Her initial pressure was 217/84 with a heart rate of 76. She was treated with Nitro paste, 20 mg of Lasix IV, metoprolol 25 mg p.o., Norvasc 10 mg p.o., 81 mg aspirin p.o. NS small fluid bolus of 500 mL of normal saline followed by 20 mg of Lasix IV push. Ms. Laird states her symptoms resolved and her repeat blood pressure was 196/75 with heart rate of 70. She denies chest pain, any further visual changes, or dizziness. EKG shows normal sinus rhythm at 76 with flipped T waves in aVR and less than [address] elevation in V1 V2. Lab evaluation relatively unremarkable except a troponin of 114. We will admit her for serial troponins, gradual reduction in blood pressure, and Doppler evaluation of her bilateral carotid arteries. - Physical Exam General: Alert, In no apparent distress, Oriented x3 HEENT: Atraumatic, Normocephalic Neck: Supple Respiratory: Normal air movement Cardiovascular: Normal pulses, Regular rate/rhythm, Normal S1 S2, Other (lower extremities dry with poor turgor) Capillary refill: <2 Seconds Gastrointestinal: Normal bowel sounds Musculoskeletal: No swelling, No contractures Integumentary: No rashes Neurological: Normal speech, Normal tone, Normal affect Lymphatics: No axilla or inguinal lymphadenopathy Hospital Course: Ms. Laird is a 73-year-old female with past medical history of hypertension, hyperlipidemia, CVA, and diabetes. Her blood pressure medicine was recently changed to increase her hydralazine from 25 mg p.o. twice daily to 50 mg p.o. twice daily in addition to her other medication. she states Ms. Laird compl ained of visual changes in her left eye with some mild dizziness. She took her blood pressure and it was noted to be quite elevated and prompted her to come to the emergency department. Her initial pressure was 217/84 with a heart rate of 76. She was admitted for Hypertenisive urgency, elevated troponon, MRI showed acute lacunar infarct right thalmus, she was seen by neurolgy, PT/OT, BP improved, she is tolerating diet, stable to discharge to SNF. Assessment acute CVA lacunar infarct in right thalamus-on Eliquis, plavix, folic acid, follow up with Neurology after discharge. seen by PT/OT while in patent paroxysmal atrial fibrillation, continue Apixaban 5 mg twice daily hypertensive urgency-improved carvedilol to 6.25 mg for asymptomatic bradycardia, add hydralazine 20 mg 3 times daily continue losartan, Aldactone, chlorthalidone, elevated troponin, Troponin plateaued around 100, twelve-lead EKG shows no ST or T wave change, no chest pain type 2 diabetes Hemoglobin A1c 4.5, hold metformin fever of unclear etiology, likely viral-resolved anemia of chronic disease-Hemoglobin stable around 10, no clinical bleeding asymptomatic bacteriuria with E. coli -DC IV and DC SNF -Follow-up with PCP in 1 to 2 weeks -Follow-up with neurology after discharge after discharge -Please call Dr. Colvin at [phone] if any questions regarding hospital stay -Please call nursing station at [phone] if any nursing or medication questions -Return to the emergency room if symptoms worsen Vital Signs/Physical Exam: Temp Pulse Resp BP Pulse Ox 97.9 F 52 16 172/76 H 100 03/22/24 20:00 03/22/24 20:00 03/22/24 20:00 03/22/24 20:00 03/22/24 20:00 Other Physical/Emotional Findings: - Physical Exam. General: Not acutely ill looking, in no apparent distress,. HEENT: Normocephalic, atraumatic, nonicteric sclera, nonanemic conjunctive. Neck: Supple, without JVD or goiter or thyroid mass. Respiratory: Normal breathing effort, clear to auscultation bilaterally, no crackles no wheezing or rhonchi. Cardiovascular: Regular rate and rhythm, S1, S2 normal, no murmur no gallop. Gastrointestinal: Normal bowel sounds, nondistended, nontender, No ascites, , No masses, no hepatosplenomegaly. Extremities : No clubbing, No peripheral edema,. Integumentary: No rashes, petechia, suspected lesions. Lymphatics: No axilla or cervical lymphadenopathy. Neurology; alert awake oriented x3, motor 5/5 of both extremity, sensory grossly intact, mild dysarthria, Laboratory Data at Discharge: WBC 5.50 thou/uL (4.3-10.9) 03/20/24 04:32 Hgb 9.8 g/dL (12.0-15.0) L 03/20/24 04:32 Hct 29.2 % (36.0-45.0) L 03/20/24 04:32 Plt Count 253 thou/uL (152-406) 03/20/24 04:32 PT Cancelled 03/19/24 18:57 INR Cancelled 03/19/24 18:57 APTT Cancelled 03/19/24 18:57 Sodium 138 mEq/L (136-145) 03/22/24 06:12 Potassium 4.0 mEq/L (3.5-5.1) 03/22/24 06:12 BUN 26 mg/dL (7-18) H 03/22/24 06:12 Creatinine 1.02 mg/dL (0.55-1.02) 03/22/24 06:12 Glucose 116 mg/dL (74-106) H 03/22/24 06:12 Phosphorus 2.8 mg/dL (2.5-4.9) 03/19/24 18:23 Magnesium 2.1 mg/dL (1.6-2.4) 03/19/24 18:23 Total Bilirubin 0.3 mg/dL (0.2-1.0) 03/16/24 13:50 AST < 10 U/L (15-37) L 03/16/24 13:50 ALT 16 U/L (13-56) 03/16/24 13:50 Alkaline Phosphatase 90 U/L (45-117) 03/16/24 13:50 Lipase 24 U/L (13-75) 03/16/24 13:50 Home Medications: Aspirin [Aspirin EC 81 MG] 1 tab PO DAILY 03/17/24 Hydralazine [Apresoline*] 50 mg PO DAILY 03/17/24 Losartan Potassium 1 tab PO DAILY 03/17/24 Apixaban [Eliquis] 5 mg PO BID 03/23/24 Atorvastatin Calcium [Lipitor] 80 mg PO BEDTIME tab 03/23/24 Chlorthalidone [Hygroton 25mg Tab*] 12.5 mg PO DAILY tab 03/23/24 Clopidogrel Bisulfate [Plavix*] 75 mg PO DAILY #0 03/23/24 Hydralazine [Apresoline*] 20 mg PO TID tab 03/23/24 cloNIDine HCL [Catapres*] 0.1 mg PO TID tab 03/23/24 Diet: AHA Activity: Fall precautions Followup: Brad Cameron MD [Primary Care Provider] - Camilo Gustafson MD [ASSOCIATE-ACTIVE - CAN ADMIT] - Time spent managing pt's care (in minutes): 45
[2024-03-23 05:04] VITALS: BMI 21.7
[2024-03-23 10:45] VITALS: O2SAT 100
--- NOTE | 2024-03-23 16:47 | P.PN ---
Date of Service: 03/23/24 subjective Acute CVA,plan to discharge to fdc ambulating with PT today Review of Systems 10-point ROS is otherwise unremarkable Physical Examination - Physical Exam General: Alert, In no apparent distress, Oriented x3 HEENT: Atraumatic, Normocephalic Neck: Supple Respiratory: Normal air movement Cardiovascular: Normal pulses, Regular rate/rhythm, Normal S1 S2, Capillary refill: <2 Seconds Gastrointestinal: Normal bowel sounds Musculoskeletal: No swelling, No contractures Integumentary: No rashes Neurological: Normal speech, Normal tone, Normal affect Assessment And Plan Acute CVA new lacunar infarct in right thalamus Visual change with elevated BP (resolved) bilateral carotid Doppler Subjective right upper extremity weakness, dysarthria on March 19, normal neurologic exam except mild intermittent dysarthria Brain MRI demonstrated punctuated acute infarct in the right thalamus along with chronic left cerebral and bilateral cerebellar infarctions. No tPA was given, telemetry reviewed, paroxysmal atrial fibrillation noted, CT of the brain shows low-density in the left occipital area, no large vessel occlusion by CT of the head and neck, transthoracic echocardiogram result normal left ventricular ejection fraction, no valvular heart disease, no source of intracardiac thromboembolism apixaban 5 mg twice started, continue Plavix, statin, continue OT PT Hypertensive urgency with elevated troponin paroxysmal atrial fibrillation Apixaban 5 mg twice daily Losartan 50 mg p.o. daily Hydralazine 50 mg p.o. twice daily Aspirin 81 mg p.o. daily Monitor and trend blood pressure reading Monitor and trend serial troponins Pain control O2 as needed history of type 2 diabetes Hemoglobin A1c 4.5, overcorrected, metformin discontinued monitor blood sugar and low-dose insulin sliding scale, fever of unclear etiology, likely viral Fever x1, remain afebrile, clear chest x-ray, no leukocytosis or neutropenia, urine culture on admission growing E. coli but patient having no urinary symptoms, all viral antigen test negative, blood culture no growth to date, empiric antibiotic anemia of chronic disease Hemoglobin stable around 10, no clinical bleeding asymptomatic bacteriuria with E. coli No treatment indicated, VTE/GI prophylaxis Incidental finding on chest x-ray with a positive suprahilar nodule radiology recommends repeat evaluation in 6 to 12 months, patient and friend/caregiver notified Discharge Plan: Home Plan to discharge in: 48 Hours - Advance Directives Full code Time with patient 20 min
[2024-03-24] MEDS: HYDRALAZINE HCL 20 MG/ML VIAL IV PRN (04:42)
[2024-03-24 05:05] LABS: Anion Gap 6.4 mEq/L (5.0-15.0); Potassium 4.4 mEq/L (3.5-5.1)
--- NOTE | 2024-03-24 12:32 | EKG ---
Test Date: 2024-03-19 Test Time: 18:36:10 Mechanic Insulator: AVA MEASUREMENT RESULTS: Intervals: Rate: 64 WA: 156 QRSD: 98 QT: 436 QTc: 449 [place]: P: 71 WA: 156 QRS: 23 T: 14 INTERPRETIVE STATEMENTS: Normal sinus rhythm Normal ECG Compared to ECG 03/16/2024 14:40:40 Myocardial infarct finding no longer present Electronically Signed On 03-24-24 12:21:33 STOCK FEEDER by Mack Dugan
[2024-03-24 12:48] VITALS: BP 144/57; TEMP 97.6
== END 2024-03-24 16:37 | DRG 65 ==
LOC: ER 13:17 → ERHOLD 17:27 → 2ND 03-17 18:44
PROVIDERS: ADMIT Internal Medicine; ATTEND Hospitalist
DX: I63.9 Cerebral infarction, unspecified (principal); G81.91 Hemiplegia, unspecified affecting right dominant side; I16.0 Hypertensive urgency; E78.00 Pure hypercholesterolemia, unspecified; I10 Essential (primary) hypertension; E11.9 Type 2 diabetes mellitus without complications; D63.8 Anemia in other chronic diseases classified elsewhere; I48.0 Paroxysmal atrial fibrillation; F03.90 Unspecified dementia, unspecified severity, without behavioral disturbance, psychotic disturbance, mood disturbance, and anxiety; B96.20 Unspecified Escherichia coli [E. coli] as the cause of diseases classified elsewhere; R47.01 Aphasia; R82.71 Bacteriuria; R29.810 Facial weakness; R79.89 Other specified abnormal findings of blood chemistry; Z88.8 Allergy status to other drugs, medicaments and biological substances; Z79.82 Long term (current) use of aspirin; Z11.52 Encounter for screening for COVID-19; Z79.84 Long term (current) use of oral hypoglycemic drugs; Z79.01 Long term (current) use of anticoagulants; Z79.02 Long term (current) use of antithrombotics/antiplatelets; Z86.73 Personal history of transient ischemic attack (TIA), and cerebral infarction without residual deficits; Z79.899 Other long term (current) drug therapy
CPT/HCPCS: 36415; 70450; 70496; 70498; 70551; 71045; 71046; 80048; 80076; 81001; 82947; 83036; 83690; 83735; 83880; 84100; 84484; 85025; 85610; 85730; 87040; 87077; 87086; 87088; 87186; 87804; 87807; 87811; 93005; 93306; 93880; 94760; 96361; 96372; 96374; 96375; 97116; 97161; 97165; 97530; 99284; J0360; J0696; J1650; J1940; J7040; Q9967